=== PATIENT | male | born 1930 | race Caucasian/White ===

== ENCOUNTER 2016-06-23 16:49 | Emergency (ER) | payer OTHER ==
[2016-06-23 17:20] VITALS: TEMP 97.7; BMI 30.9
--- NOTE | 2016-06-23 18:29 | PDOC ---
[id number] is a 86 year old male, with a significant past medical history of epilepsy, diabetes, hyperlipidemia, hypertension, and triple bypass, who presents to the emergency department with family for a couple days of swelling and pain to his left hand. He reports pain with movement of the left hand but reports pain to the touch. He denies any trauma to the hand, and reports having some mild wrist pain at baseline, however, noticed an increase in swelling to the entire hand. He denies chest pain, shortness of breath, headache and dizziness. He denies fever, chills, nausea, vomit, diarrhea and constipation. He denies dysuria, frequency, urgency and hematuria. Allergies: NKDA Past surgical history: triple bypass and cholecystectomy Social history: denies toxic habits PCP - Dr. 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 <Tea Joyner - Last Filed: 06/23/16 20:26> <Ad Cifuentes - Last Filed: 06/24/16 07:59> - General Chief Complaint: Edema Stated Complaint: left hand swelling Time Seen by Provider: 06/23/16 17:13 Past History <Tea Joyner - Last Filed: 06/23/16 20:26> - Past Medical History Cardiac Disorders: Yes Diabetes: Yes HTN: Yes Hypercholesterolemia: Yes Seizures: Yes - Surgical History Cardiac Surgery: Yes (bipass) Cholecystectomy: Yes - Psycho/Social/Smoking Cessation Hx Anxiety: No Suicidal Ideation: No Smoking History: Former smoker Have you smoked in the past 12 months: No If you are a former smoker, when did you quit?: 2006 Information on smoking cessation initiated: No Hx Alcohol Use: No Drug/Substance Use Hx: No Substance Use Type: None Hx Substance Use Treatment: No <Ad Cifuentes - Last Filed: 06/24/16 07:59> - Past Medical History Allergies/Adverse Reactions: Allergies Allergy/AdvReac Type Severity Reaction Status Date / Time No Known Allergies Allergy Verified 06/23/16 16:50 Home Medications: Ambulatory Orders Amlodipine Besylate 5 mg PO DAILY 06/23/16 Apixaban [Eliquis] 10 mg PO DAILY 06/23/16 Cephalexin Monohydrate [Keflex -] 500 mg PO Q6H #28 capsule 06/23/16 Cyanocobalamin [Vitamin B12 -] 1,000 mcg PO DAILY 06/23/16 Donepezil HCl [Aricept] 10 mg PO DAILY 06/23/16 Hydrochlorothiazide [Hctz -] 25 mg PO DAILY 06/23/16 Levetiracetam [Keppra -] 1,000 mg PO BID 06/23/16 Magnesium Oxide [Magnesium] 500 mg PO DAILY 06/23/16 Metformin HCl [Glucophage] 1,500 mg PO DAILY 06/23/16 Metoprolol Tartrate 100 mg PO BID 06/23/16 Phenytoin Na Extended [Dilantin -] 400 mg PO DAILY 06/23/16 Ramipril 5 mg PO DAILY 06/23/16 Sertraline HCl [Zoloft] 50 mg PO DAILY 06/23/16 Simvastatin 40 mg PO DAILY 06/23/16 Sitagliptin Phosphate [Januvia] 25 mg PO DAILY 06/23/16 Review of Systems - Review of Systems Able to Perform ROS?: Yes Comments:: 06/23/16 18:31 CONSTITUTIONAL: Absent: fever, chills, diaphoresis, generalized weakness, malaise, loss of appetite HEENT: Absent: rhinorrhea, nasal congestion, throat pain, throat swelling, difficulty swallowing, mouth swelling, ear pain, eye pain, visual Changes CARDIOVASCULAR: Absent: chest pain, syncope, palpitations, irregular heart rate, lightheadedness , peripheral edema RESPIRATORY: Absent: cough, shortness of breath, dyspnea with exertion, orthopnea, wheezing, stridor, hemoptysis GASTROINTESTINAL: Absent: abdominal pain, abdominal distension, nausea, vomiting, diarrhea, constipation, melena, hematochezia GENITOURINARY: Absent: dysuria, frequency, urgency, hesitancy, hematuria, flank pain, genital pain MUSCULOSKELETAL: (+) left hand swelling and tenderness Absent: myalgia, SKIN: Absent: rash, itching, pallor HEMATOLOGIC/IMMUNOLOGIC: Absent: easy bleeding, easy bruising, lymphadenopathy, frequent infections ENDOCRINE: Absent: unexplained weight gain, unexplained weight loss, heat intolerance, cold intolerance NEUROLOGIC: Absent: headache, focal weakness or paresthesias, dizziness, unsteady gait, seizure, mental status changes, bladder or bowel incontinence PSYCHIATRIC: Absent: anxiety, depression, suicidal or homicidal ideation, hallucinations. <Tea Joyner - Last Filed: 06/23/16 20:26> *Physical Exam - Vital Signs Last Vital Signs Temp Pulse Resp BP Pulse Ox 97.7 F 112 H 20 136/83 96 06/23/16 16:50 06/23/16 16:50 06/23/16 16:50 06/23/16 16:50 06/23/16 16:50 - Physical Exam Comments: 06/23/16 18:32 GENERAL: Well developed, well nourished. Awake and alert. No acute distress. HEENT: Normocephalic, atraumatic. PERRLA, EOMI. No conjunctival pallor. Sclera are non- icteric. Moist mucous membranes. Oropharynx is clear. NECK: Supple. Full ROM. No JVD. Carotid pulses 2+ and symmetric, without bruits. No thyromegaly. No lymphadenopathy. CARDIOVASCULAR: Regular rate and rhythm. No murmurs, rubs, or gallops. Distal pulses are 2+ and symmetric. PULMONARY: No evidence of respiratory distress. Lungs clear to auscultation bilaterally. No wheezing, rales or rhonchi. ABDOMINAL: Soft. Non-tender. Non-distended. No rebound or guarding. No organomegaly. Normoactive bowel sounds. MUSCULOSKELETAL Normal range of motion at all joints. No bony deformities. No CVA tenderness. EXTREMITIES: (+) left hand is edematous, non-erythematous, and minimally tender to palpation. Right hand is normal. No cyanosis. No clubbing. No calf tenderness. SKIN: Warm and dry. Normal capillary refill. No rashes. No jaundice. NEUROLOGICAL: Alert, awake, appropriate. Cranial nerves 2-12 intact. Normoreflexic in the upper and lower extremities. Normal speech. Toes are down-going bilaterally. Gait is normal without ataxia. PSYCHIATRIC: Cooperative. Good eye contact. Appropriate mood and affect. <Tea Joyner - Last Filed: 06/23/16 20:26> - Vital Signs Last Vital Signs Temp Pulse Resp BP Pulse Ox 97.7 F 112 H 20 136/83 96 06/23/16 16:50 06/23/16 16:50 06/23/16 16:50 06/23/16 16:50 06/23/16 16:50 <Ad Cifuentes - Last Filed: 06/24/16 07:59> ED Treatment Course - LABORATORY CBC & Chemistry Diagram: 06/23/16 19:31 06/23/16 19:31 - RADIOLOGY Radiograph Interpretation: 06/23/16 18:34 Left hand xray was read by Dr. Parks Impression: left hand and wrist appears without fracture or bony deformities. There is a moderate amount of soft tissue swelling on xray. 06/23/16 20:26 Left upper extremity Doppler was read by Dr. Meneses at 1935 Impression: No evidence of DVT <Tea Joyner - Last Filed: 06/23/16 20:26> - LABORATORY CBC & Chemistry Diagram: 06/23/16 19:31 06/23/16 19:31 - RADIOLOGY Radiology Studies Ordered: Category Date Time Status WRIST W/HAND-LEFT* [RAD] Stat Radiology 06/23/16 17:41 Taken DUPLEX VASCUL US-1 ARM [US] Stat Ultrasound 06/23/16 18:22 Ordered <Ad Cifuentes - Last Filed: 06/24/16 07:59> Medical Decision Making - Medical Decision Making 06/23/16 18:35 xrays have been reviewed and negative for any acute findings. I will obtain US doppler of Left upper extremity to r/o blood clot due to the patient's history of CABG with surgical involvement of the distal left upper extremity. <Tea Joyner - Last Filed: 06/23/16 20:26> - Medical Decision Making 06/24/16 07:58 A should with unexplained edema of the left hand. 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 No trauma. Possibility of DVT being investigated with Doppler studies. Other possibilities early cellulitis or gallop. Signed out to Dr. Gallagher pending ultrasound evaluation, blood work, and further treatment 7 PM. <Ad Cifuentes - Last Filed: 06/24/16 07:59> *DC/Admit/Observation/Transfer - Attestations Scribe Attestion: 06/23/16 18:34 Documentation prepared by Tea Joyner, acting as director medical writing for Ad Clancy MD <Tea Joyner - Last Filed: 06/23/16 20:26> <Ad Cifuentes - Last Filed: 06/24/16 07:59> Diagnosis at time of Disposition: Swelling of left hand - Discharge Dispostion Disposition: HOME Condition at time of disposition: Stable - Prescriptions Prescriptions: Cephalexin Monohydrate [Keflex -] 500 mg PO Q6H #28 capsule - Referrals Referrals: Ronny Cardona MD [Staff Physician] - 1 week - Patient Instructions Printed Discharge Instructions: DI for Cellulitis -- Adult Additional Instructions: elevate left hand as much as possible keflex 500mg 4 X day for 1 week drink plenty of water followup with Dr Tariq in 2 days as scheduled followup with Dr Cardona within 1 week return to ER if swelling/redness/pain worsens or you develop fever
--- NOTE | 2016-06-23 19:14 | PDOC ---
[id number] 136/83 96 06/23/16 16:50 06/23/16 16:50 06/23/16 16:50 06/23/16 16:50 06/23/16 16:50 ED Treatment Course - LABORATORY CBC & Chemistry Diagram: 06/23/16 19:31 06/23/16 19:31 Progress Note - Progress Note Progress Note: Care of this patient received from Dr. Parks. Patient presents with 2 day history of progressive left hand edema. Upper extremity Doppler ultrasound negative for DVT CBC/chemistry profile essentially normal with normal white blood cell count; glucose is minimally elevated at 126. There is evidence of mild prerenal azotemia with a BUN of 26 and a creatinine of 0.8. Uric acid is normal at 4.7. Remainder of the chemistry profile is essentially normal except for minimal elevation of alkaline phosphatase(111) Results discussed with patient, his , his daughter and his son-in-law. Because the patient is a diabetic, empirical treatment for early cellulitis will be started: Keflex 500 mg with first dose given here. Course of 7 days prescribed for the patient. Patient should follow-up with his general medical doctor, Dr. Cardona within 1 week. Appointment with patient's food and beverage manager (Dr. Holder) is already scheduled on June 25. Patient should return to the ER if there is any worsening of the erythema/edema/ pain of the hand or if patient develops fever *DC/Admit/Observation/Transfer Diagnosis at time of Disposition: Swelling of left hand - Discharge Dispostion Disposition: HOME Condition at time of disposition: Stable - Prescriptions Prescriptions: Cephalexin Monohydrate [Keflex -] 500 mg PO Q6H #28 capsule - Referrals Referrals: Ronny Cardona MD [Staff Physician] - 1 week - Patient Instructions Printed Discharge Instructions: DI for Cellulitis -- Adult Additional Instructions: elevate left hand as much as possible keflex 500mg 4 X day for 1 week drink plenty of water followup with Dr Tariq in 2 days as scheduled followup with Dr Cardona within 1 week return to ER if swelling/redness/pain worsens or you develop fever
[2016-06-23 20:05] LABS: BASOPHIL 0.8 % (0-2.0); EOSINOPHIL 1.3 % (0-4.5); MCH 32.7 pg (25.7-33.7); MCHC 33.9 g/dl (32.0-35.9); MEAN CELL VOLUME 96.5 fl (80-96); MEAN PLT VOLUME 7.8 fl (7.5-11.1); NEUTROPHILS 63.4 % (42.8-82.8); PLATELET COUNT 224 K/MM3 (134-434); RDW 12.9 % (11.9-15.9); WHITE BLOOD COUNT 9.1 K/mm3 (4.0-10.0)
[2016-06-23 20:13] LABS: ALK PHOS 111 U/L (32-92); ANION GAP 11 (8-16); BILIRUBIN,TOTAL 0.3 mg/dl (0.2-1.0); CALCIUM 9.3 mg/dl (8.4-10.2); CO2 29 mmol/L (22-28); CREATININE 0.8 mg/dl (0.6-1.3); GLUCOSE,RANDOM 126 mg/dl (74-106); SGOT/AST 39 U/L (10-42); SGPT/ALT 32 U/L (10-40); TOT PROT 7.6 g/dl (6.4-8.3)
[2016-06-23] MEDS ORDERED: CEPHALEXIN MONOHYDRATE 500 MG CAPSULE (UD) PO ONE (20:27)
[2016-06-23] MEDS ORDERED: CEPHALEXIN MONOHYDRATE 500 MG CAPSULE (UD) ONE (20:37)
[2016-06-23 20:59] VITALS: BP 111/62; PULSE 75
[2016-06-23 21:02] LABS: URIC ACID 4.7 mg/dl (2.6-7.2)
== END 2016-06-23 21:02 | disposition home or self-care (01) ==
LOC: FER 16:49
DX: M79.89 Other specified soft tissue disorders (principal); G40.909 Epilepsy, unspecified, not intractable, without status epilepticus; E11.9 Type 2 diabetes mellitus without complications; I10 Essential (primary) hypertension; Z95.1 Presence of aortocoronary bypass graft; Z87.891 Personal history of nicotine dependence
CPT/HCPCS: 36415; 73110-TC-LT; 73130-TC-LT; 80053; 84550; 85025; 93971; 99284-25

== ENCOUNTER 2017-03-06 10:52 | Inpatient (IN) | payer OTHER ==
[2017-03-06] MEDS ORDERED: SODIUM CHLORIDE 1,000 ML IV STA ×2 (11:15→12:23)
[2017-03-06] MEDS ORDERED: SODIUM CHLORIDE 0.9% 1000 ML INFUS.BAG IV PRN (11:15)
[2017-03-06] MEDS ORDERED: ACETAMINOPHEN 1000 MG/100 ML VIAL (NON FORMULARY) IVPB ONE ×2 (11:16→11:46)
--- NOTE | 2017-03-06 11:26 | PDOC ---
*Physical Exam - Vital Signs Last Vital Signs Temp Pulse Resp BP Pulse Ox 101.5 F H 70 18 113/55 100 03/06/17 11:14 03/06/17 11:02 03/06/17 11:02 03/06/17 11:02 03/06/17 11:02 - Physical Exam Comments: 03/06/17 11:23 fever on rectal exam alert, cooperative, following commands head atraumatic L shoulder abrasion and ? deformity but FROM bruising to L hip/Lower abdomen but no tenderness no cvat neuro nonfocal ED Treatment Course - RADIOLOGY Radiology Studies Ordered: Category Date Time Status CHEST X-RAY PORTABLE* [RAD] Stat Radiology 03/06/17 11:15 Ordered Medical Decision Making - Critical Care Time Total Critical Care Time (minutes): 40 Critical Care Statement: The care of this patient involved high complexity decision making to prevent further life threatening deterioration of the patient 's condition and/or to evaluate & treat vital organ system(s) failure or risk of failure. - Medical Decision Making 03/06/17 11:24 Patient seen and evaluated with the nurse practitioner. I agree with the overall evaluation, assessment, and management with the following summary of visit: 86-year-old male presents with weakness and falls in the setting of fever. No localizing symptoms on history, Febrile, remaining vitals are within normal limits Exam as noted Sepsis protocol initiated Regarding falls and trauma workup: Will perform CT head, left shoulder, chest x- ray, pelvis x-ray. Antibiotics as needed Admission
[2017-03-06] MEDS ORDERED: DIPHTH,PERTUSS(ACELL),TET 0.5 ML DISP.SYRIN IM ONE (11:37)
[2017-03-06 11:43] LABS: BASO % 0.6 % (0-2.0); EOS % 0.1 % (0-4.5); MCH 32.5 pg (25.7-33.7); MCHC 32.9 g/dl (32.0-35.9); MEAN CELL VOLUME 98.7 fl (80-96); MEAN PLT VOLUME 7.1 fl (7.5-11.1); NEUT # 4.4 # (42.8-82.8); NEUT % 68.5 % (42.8-82.8); PLATELET COUNT 148 K/MM3 (134-434); RDW 14.3 % (11.9-15.9); WHITE BLOOD COUNT 6.4 K/mm3 (4.0-10.0)
[2017-03-06 11:45] LABS: VENOUS PH 7.35 (7.32-7.42)
[2017-03-06 11:46] LABS: VENOUS BLOOD GAS HCO3 27.8 meq/L (19-25)
[2017-03-06] MEDS ORDERED: ACETAMINOPHEN INJECTION 100 ML IVPB ONE (11:47)
[2017-03-06 11:49] LABS: URINE APPEARANCE CLEAR; URINE BILIRUBIN NEGATIVE (NEGATIVE); URINE BLOOD 1+ (NEGATIVE); URINE COLOR YELLOW; URINE GLUCOSE (UA) 3+ (NEGATIVE); URINE KETONE NEGATIVE (NEGATIVE); URINE LEUK ESTERASE NEGATIVE (NEGATIVE); URINE NITRITE NEGATIVE (NEGATIVE); URINE PROTEIN NEGATIVE (NEGATIVE); URINE UROBILINOGEN NEGATIVE mg/dL (0.2-1.0)
[2017-03-06 11:53] LABS: INR 1.39 (0.82-1.09); PROTHROMBIN TIME (PATIENT) 15.7 SEC (9.98-11.88)
[2017-03-06 11:55] LABS: ACTIVATED PTT 33.2 SECONDS (26.9-34.4)
[2017-03-06 12:03] LABS: URINE RBC 2 /hpf (0-3); URINE WBC 1 /hpf (3-5)
[2017-03-06 12:05] LABS: ALBUMIN 3.3 g/dl (3.4-5.0); ANION GAP 10 (8-16); BILIRUBIN,TOTAL 0.3 mg/dL (0.2-1.0); CALCIUM 7.8 mg/dL (8.5-10.1); CO2 27 mmol/L (21-32); CREATININE 1.2 mg/dL (0.7-1.3); GLUCOSE,RANDOM 236 mg/dL (74-106); SGOT/AST 33 U/L (15-37); SGPT/ALT 28 U/L (12-78); TOT PROT 6.8 g/dl (6.4-8.2)
[2017-03-06 12:07] LABS: ALK PHOS 81 U/L (45-117); CPK 79 IU/L (39-308); TROPONIN I 0.02 ng/ml (0.00-0.05)
--- NOTE | 2017-03-06 13:21 | PDOC ---
History of Present Illness - General Chief Complaint: Weakness Stated Complaint: WEAKNESS Time Seen by Provider: 03/06/17 11:09 History Source: Patient, Other (son) Exam Limitations: No Limitations - History of Present Illness Initial Comments: 03/06/17 13:22 86-year-old male presents to the ED status post fall landing on his left knee and left shoulder this morning while going to the bathroom. Patient also fell twice this week without LOC but refused medical care once EMS had arrived. Son states father appears weak and son states he is not ambulating well, along with decreased appetite for the past 2 days. Patient denies recent travel, recent illness, recent change in medications. Patient has no complaints presently. As per son , just had a pacemaker placed and returned home a few days ago also concerning for infection. Timing/Duration: getting worse Severity: moderate Associated Symptoms: reports: fever/chills, weakness Past History - Travel Traveled outside of the country in the last 30 days: No - Past Medical History Allergies/Adverse Reactions: Allergies Allergy/AdvReac Type Severity Reaction Status Date / Time No Known Allergies Allergy Verified 03/06/17 11:04 Home Medications: Ambulatory Orders Apixaban [Eliquis] 5 mg PO BID 06/23/16 Cyanocobalamin [Vitamin B12 -] 1,000 mcg PO DAILY 06/23/16 Donepezil HCl [Aricept] 10 mg PO DAILY 06/23/16 Levetiracetam [Keppra -] 1,000 mg PO BID 06/23/16 Metformin HCl [Glucophage] 500 mg PO TID 06/23/16 Metoprolol Tartrate 50 mg PO BID 06/23/16 Phenytoin Na Extended [Dilantin -] 200 mg PO BID 06/23/16 Ramipril 10 mg PO DAILY 06/23/16 Sertraline HCl [Zoloft] 50 mg PO DAILY 06/23/16 Simvastatin 40 mg PO DAILY 06/23/16 Amiodarone HCl [Cordarone -] 200 mg PO BID 03/06/17 Dapagliflozin Propanediol [Farxiga] 10 mg PO DAILY 03/06/17 Furosemide [Lasix] 20 mg PO DAILY 03/06/17 Spironolactone 25 mg PO DAILY 03/06/17 Cardiac Disorders: Yes COPD: No Diabetes: Yes HTN: Yes Hypercholesterolemia: Yes Seizures: Yes - Surgical History Cardiac Surgery: Yes (bipass) Cholecystectomy: Yes - Suicide/Smoking/Psychosocial Hx Smoking History: Unknown if ever smoked Have you smoked in the past 12 months: No If you are a former smoker, when did you quit?: 2006 Information on smoking cessation initiated: No Hx Alcohol Use: No Drug/Substance Use Hx: No Substance Use Type: None Hx Substance Use Treatment: No Patient Lives Alone: No Lives with/in: spouse/SO Review of Systems - Review of Systems Able to Perform ROS?: Yes Constitutional: Yes: Loss of Appetite, Weakness. No: Unintentional Wgt. Loss Respiratory: No: Symptoms reported Cardiac (ROS): No: Symptoms Reported ABD/GI: Yes: Poor Appetite Musculoskeletal: No: Symptoms Reported Integumentary: No: Symptoms Reported Neurological: Yes: Weakness Hematologic/Lymphatic: No: Symptoms Reported *Physical Exam - Vital Signs Last Vital Signs Temp Pulse Resp BP Pulse Ox 101.5 F H 84 20 112/74 94 L 03/06/17 11:14 03/06/17 12:03 03/06/17 12:03 03/06/17 12:03 03/06/17 12:03 - Physical Exam General Appearance: Yes: Nourished, Appropriately Dressed. No: Apparent Distress HEENT: positive: EOMI, MONIKA, TMs Normal, Pharynx Normal (dry) Neck: positive: Supple. negative: Tender, Decreased range of motion Respiratory/Chest: positive: Rhonchi (rll on inspiration). negative: Chest Tender, Respiratory Distress, Accessory Muscle Use, Crackles, Wheezing Cardiovascular: positive: Regular Rhythm, Regular Rate. negative: Murmur Vascular Pulses: Dorsalis-Pedis (R): 2+, Doralis-Pedis (L): 2+ Gastrointestinal/Abdominal: positive: Soft, Tenderness, Other (noted purplish blue ecchymotic areas to abdomen) Extremity: positive: Normal Capillary Refill, Normal Range of Motion. negative : Normal Inspection (noted abrasion to left patella and superficial sjin tear to posteriot left shoulder. No deformity or crepitus noted), Tender, Pedal Edema Neurologic: positive: Normal Mood/Affect, Motor Strength 5/5 Heart Score/ECG Review - ECG Intrepretation Rhythm: Regular Rhythm (rate 80, NSR. no st depression or elevation noted) ED Treatment Course - LABORATORY CBC & Chemistry Diagram: 03/06/17 11:05 03/06/17 11:05 - ADDITIONAL ORDERS Additional order review: Laboratory Results 03/06/17 03/06/17 03/06/17 11:05 11:05 11:05 PT with INR INR PTT (Actin FS) VBG pH POC VBG pCO2 POC VBG pO2 Mixed VBG HCO3 Sodium 134 L Potassium 4.2 Chloride 97 L Carbon Dioxide 27 Anion Gap 10 BUN 23 H Creatinine 1.2 D Creat Clearance w eGFR 57.41 Random Glucose 236 H D Lactic Acid 2.5 H* Calcium 7.8 L Total Bilirubin 0.3 AST 33 D ALT 28 Alkaline Phosphatase 81 Creatine Kinase 79 Troponin I 0.02 D Total Protein 6.8 Albumin 3.3 L Urine Color Urine Appearance Urine pH Ur Specific Cavour Urine Protein Urine Glucose (UA) Urine Ketones Urine Blood Urine Nitrite Urine Bilirubin Urine Urobilinogen Urine WBC (Auto) Urine RBC (Auto) Blood Type O POSITIVE Antibody Screen Negative 03/06/17 03/06/17 03/06/17 11:05 11:05 11:05 PT with INR 15.70 H INR 1.39 H D PTT (Actin FS) 33.2 VBG pH 7.35 POC VBG pCO2 51.3 POC VBG pO2 34.1 Mixed VBG HCO3 27.8 H Sodium Potassium Chloride Carbon Dioxide Anion Gap BUN Creatinine Creat Clearance w eGFR Random Glucose Lactic Acid Calcium Total Bilirubin AST ALT Alkaline Phosphatase Creatine Kinase Troponin I Total Protein Albumin Urine Color Yellow Urine Appearance Clear Urine pH 5.0 Ur Specific Cavour 1.017 Urine Protein Negative Urine Glucose (UA) 3+ H Urine Ketones Negative Urine Blood 1+ H Urine Nitrite Negative Urine Bilirubin Negative Urine Urobilinogen Negative Urine WBC (Auto) 1 Urine RBC (Auto) 2 Blood Type Antibody Screen 03/06/17 11:30 Influenza Types A,B Antigen (PAVEL) - Final Nasopharyngeal Swab - Final 03/06/17 11:05 RBC 4.41 MCV 98.7 H MCHC 32.9 RDW 14.3 MPV 7.1 L Neutrophils % 68.5 D Lymphocytes % 15.1 D Monocytes % 15.7 H D Eosinophils % 0.1 D Basophils % 0.6 - Medications Given in the ED: ED Medications Discontinued Medications Generic Name Dose Route Start Last Admin Trade Name Freq PRN Reason Stop Dose Admin Acetaminophen 1,000 mg 03/06/17 11:16 03/06/17 11:54 Ofirmev Injection - IVPB 03/06/17 11:17 1,000 mg ONCE ONE Administration Acetaminophen 1,000 mg 03/06/17 11:46 03/06/17 12:16 Ofirmev Injection - IVPB 03/06/17 11:47 Not Given ONCE ONE Diphtheria/Tetanus/Acell Pertussis 0.5 ml 03/06/17 11:37 03/06/17 11:55 Boostrix - IM 03/06/17 11:38 0.5 ml .ONCE ONE Administration Sodium Chloride 1,000 mls @ 1,000 mls/hr 03/06/17 11:15 03/06/17 11:54 Normal Saline - IV 03/06/17 12:14 1,000 mls/hr ASDIR STA Administration Medical Decision Making - Medical Decision Making 03/06/17 12:15 Patient in for evaluation of worsening weakness, poor by mouth intake and recurrent falls. Patient on exam has ecchymosis to the left knee, posterior left shoulder and had a rectal temp of 101.4. Patient with rhonchi to the right lower base on inspiration . Patient ordered for septic workup including IV Tylenol, head CT, shoulder x-ray and pelvic x-ray. 03/06/17 13:16 CT head unchanged from prior. Limited study due to metallic plate in right frontal region. 03/06/17 13:16 Laboratory Tests 03/06/17 03/06/17 03/06/17 11:05 11:05 11:05 WBC 6.4 Hgb 14.3 Hct 43.6 Plt Count 148 D MPV 7.1 L Monocytes % 15.7 H D PT with INR 15.70 H INR 1.39 H D VBG pH POC VBG pCO2 POC VBG pO2 Mixed VBG HCO3 Sodium Potassium Chloride Carbon Dioxide Anion Gap BUN Random Glucose Lactic Acid Calcium Troponin I Urine Glucose (UA) 3+ H Urine Blood 1+ H Urine Nitrite Negative Ur Leukocyte Esterase Pending Urine WBC (Auto) 1 Urine RBC (Auto) 2 03/06/17 03/06/17 03/06/17 11:05 11:05 11:05 WBC Hgb Hct Plt Count MPV Monocytes % PT with INR INR VBG pH 7.35 POC VBG pCO2 51.3 POC VBG pO2 34.1 Mixed VBG HCO3 27.8 H Sodium 134 L Potassium 4.2 Chloride 97 L Carbon Dioxide 27 Anion Gap 10 BUN 23 H Random Glucose 236 H D Lactic Acid 2.5 H* Calcium 7.8 L Troponin I 0.02 D Urine Glucose (UA) Urine Blood Urine Nitrite Ur Leukocyte Esterase Urine WBC (Auto) Urine RBC (Auto) 2nd bag of IVF ordered Influenza swab negative. Pelvic CT negative for acute pathology. Shoulder x- ray negative for acute findings. Call placed to Dr. Cardona to discuss admission. 03/06/17 13:[address] Cardona and states admitted to [facility]. he is also recommending that patient have a noncontrast CT and be treated for community acquired pneumonia. *DC/Admit/Observation/Transfer Diagnosis at time of Disposition: Sepsis Qualifiers: Sepsis type: sepsis due to unspecified organism Qualified Code(s): A41.9 - Sepsis, unspecified organism Pneumonia Qualifiers: Pneumonia type: due to unspecified organism Laterality: right Lung location: lower lobe of lung Qualified Code(s): J18.1 - Lobar pneumonia, unspecified organism - Discharge Dispostion Admit: Yes - Referrals - Patient Instructions - Post Discharge Activity
[2017-03-06] MEDS ORDERED: CEFTRIAXONE 1 GM in DEXTROSE 5%-WATER - 50 ML IVPB ONE (13:54)
[2017-03-06] MEDS ORDERED: AZITHROMYCIN IVPB 500 MG in DEXTROSE 5%-WATER - 250 ML IVPB ONE (13:55)
[2017-03-06] MEDS ORDERED: AZITHROMYCIN IVPB 250 ML IVPB ONE (14:32)
[2017-03-06] MEDS ORDERED: CEFTRIAXONE 1 GM/50 ML BAG ONE (14:32)
[2017-03-06 14:40] LABS: URINE LEUK ESTERASE Negative (NEGATIVE)
--- NOTE | 2017-03-06 16:57 | EKG ---
Test Reason : Blood Pressure : / mmHG Vent. Rate : 080 BPM Atrial Rate : 079 BPM P-R Int : 000 ms QRS Dur : 094 ms QT Int : 384 ms P-R-T Axes : 000 032 050 degrees QTc Int : 442 ms NORMAL SINUS RHYTHM NONSPECIFIC T WAVE ABNORMALITY ABNORMAL ECG WHEN COMPARED WITH ECG OF 24-MAY-2014 09:06, NONSPECIFIC T WAVE ABNORMALITY, IMPROVED IN INFERIOR LEADS NONSPECIFIC T WAVE ABNORMALITY, WORSE IN ANTERIOR LEADS Confirmed by INDERJIT CARRERO MD ([id number]) on 03/06/2017 4:57:34 PM Referred By: Confirmed By:INDERJIT CARRERO MD
[2017-03-06] MEDS: INSULIN SLIDING SCALE (NOVOLOG) 1 VIAL SQ SCH ×2 (18:35→22:07)
[2017-03-06 19:01] VITALS: BMI 28.2
[2017-03-06] MEDS ORDERED: PNEUMOC 13-VAL CONJ-DIP CRM/PF 0.5 ML DISP.SYRIN IM ONE (19:53)
[2017-03-06] MEDS ORDERED: INSULIN (NOVOLOG) ASPART 100 UNITS/ML 10ML VIAL ONE (21:03)
[2017-03-06] MEDS ORDERED: PT OWN MED DRAWER 7, Y5N ONE (21:04)
[2017-03-06] MEDS: levETIRAcetam 500 MG TABLET (FP) PO SCH (21:19)
[2017-03-06] MEDS: METOPROLOL TARTRATE 50 MG TABLET (FP) PO SCH (21:21)
[2017-03-06] MEDS: APIXABAN 5 MG TABLET PO SCH (21:23)
[2017-03-06] MEDS: POLYETHYLENE GLYCOL 3350 119 GM BTL PO SCH (22:05)
[2017-03-06] MEDS: PHENYTOIN NA EXTENDED 100 MG CAPSULE (FP) PO SCH (22:05)
[2017-03-07] MEDS ORDERED: ALBUTEROL SO4 2.5/IPRATROPIUM 0.5 INH SOL 3 ML VIAL.NEB. NEB ONE (05:22)
[2017-03-07] MEDS: ALBUTEROL SO4 2.5/IPRATROPIUM 0.5 INH SOL 3 ML VIAL.NEB. NEB SCH ×4 (05:35→23:02)
[2017-03-07] MEDS ORDERED: BUDESONIDE 0.25 MG/2ML INH SUSP VIAL NEB ONE (05:44)
[2017-03-07] MEDS ORDERED: FUROSEMIDE 40 MG TABLET (FP) PO ONE (05:47)
[2017-03-07] MEDS ORDERED: methylPREDNISolone NA SUCC 125 MG/2 ML VIAL IVPB ONE (05:51)
[2017-03-07] MEDS ORDERED: FUROSEMIDE 40 MG/4 ML INJECTABLE VIAL IVPUSH ONE (05:56)
--- NOTE | 2017-03-07 06:06 | HOSP ---
Subjective - Review of Symptoms Events since last encounter: Agree with Subjective: Saw Pt. at bedside Vital Signs Period Temp Pulse Resp BP Sys/Gutiérrez Pulse Ox Last 24 Hr 97.6 F-101.5 F 70-95 14-20 105-122/46-74 94-100 CARD: RRR S1, S2 RESP: Mild Expiratory Wheezing A/P.) Acute Hypoxic Resp. Failure ABG/CXR/EKG/TROP - Rest as per Resident note - PCP notified - NRB- Nebs,lasix, Solu-Medrol given - Pulm. Consult - CT reviewed <Kay Frye - Last Filed: 03/07/17 06:55> Physical Examination Vital Signs: Vital Signs Temperature 99.2 F 03/07/17 01:50 Pulse Rate 76 03/07/17 01:50 Respiratory Rate 20 03/07/17 01:50 Blood Pressure 119/57 03/07/17 01:50 O2 Sat by Pulse Oximetry (%) 95 03/06/17 21:00 Labs: CBC, BMP 03/06/17 11:05 03/06/17 11:05 <Myron Vera - Last Filed: 03/07/17 06:29> Vital Signs: Vital Signs Temperature 97.6 F 03/07/17 06:28 Pulse Rate 95 H 03/07/17 06:28 Respiratory Rate 20 03/07/17 06:28 Blood Pressure 122/65 03/07/17 06:28 O2 Sat by Pulse Oximetry (%) 95 03/06/17 21:00 Labs: CBC, BMP 03/06/17 11:05 03/06/17 11:05 <Kay Frye - Last Filed: 03/07/17 06:55> Hospitalist Encounter Assessment: I was paged by the nurse to evaluate patient mentioned . Patient labored breathing with expiratory wheezing. Vitals : BP 149/91, P99, O2 sat 83 on 2 L 89% on 6 L . PE, Head : NC At Neck Supple Chest : inspiratory and expiratory wheezing , no crackles Heart RRR, NO MRG Legs No edmea AP : I spoke with and he agreed to give the patient the following : Lasix 40 mg IVpush Solomedrol 60 mg IV Duoneb 1 amb and consult Pulmonary senior vice president and chief information officer . vent mask 50 % ABG state CXR state portable Myron Vera MD [id number] <Myron Vera - Last Filed: 03/07/17 06:29> Visit type - Emergency Visit Emergency Visit: Yes ED Registration Date: 03/06/17 Care time: The patient presented to the Emergency Department on the above date and was hospitalized for further evaluation of their emergent condition. - New Patient This patient is new to me today: Yes Date on this admission: 03/07/17 - Critical Care Critical Care patient: No <Myron Vera - Last Filed: 03/07/17 06:29>
[2017-03-07] MEDS: INSULIN SLIDING SCALE (NOVOLOG) 1 VIAL SQ SCH ×4 (06:12→21:32)
[2017-03-07 07:36] LABS: BASO % 0.3 % (0-2.0); EOS % 0.1 % (0-4.5); LYMPH # 1.8 (8-40); MCH 32.7 pg (25.7-33.7); MEAN CELL VOLUME 99.3 fl (80-96); MEAN PLT VOLUME 7.3 fl (7.5-11.1); MONO # 0.7 # (3.8-10.2); NEUT # 4.5 # (42.8-82.8); NEUT % 63.8 % (42.8-82.8); PLATELET COUNT 141 K/MM3 (134-434); WHITE BLOOD COUNT 7.1 K/mm3 (4.0-10.0)
[2017-03-07] MEDS: INSULIN DETEMIR 100 UNITS/ML MDV SQ SCH (08:00)
[2017-03-07 08:07] LABS: ALBUMIN 3.3 g/dl (3.4-5.0); ANION GAP 10 (8-16); BILIRUBIN,TOTAL 0.3 mg/dL (0.2-1.0); CALCIUM 7.5 mg/dL (8.5-10.1); CHOLESTEROL 141 mg/dL (50-200); CO2 27 mmol/L (21-32); CREATININE 0.9 mg/dL (0.7-1.3); GLUCOSE,RANDOM 176 mg/dL (74-106); MAGNESIUM 1.8 mg/dL (1.8-2.4); PHOSPHOROUS 3.6 mg/dL (2.5-4.9); SGOT/AST 39 U/L (15-37); SGPT/ALT 27 U/L (12-78); TOT PROT 6.8 g/dl (6.4-8.2)
[2017-03-07 08:08] LABS: ALK PHOS 82 U/L (45-117)
--- NOTE | 2017-03-07 08:59 | HP ---
Admitting History and Physical - Admission Chief Complaint: 86 y.o M had several falls at home, generalized weakness, cough and chest congestion. Was BI to ER and was found to have elevated lactate level, fever and rales in the chest. The patient was admitted for further management. 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 CABG x3, Hx of PAF after CABG, ASHD, HYperlipidemia Hx of ST vs atrial tachycardia. A.Fib DM type 2 previously well controlled HTN COPD. MOH Sx-BCC on the nose. Cholecystectomy. Varicose veins. Dysphagia.MBS-slow transit. Obstructive sleep apnea-refused CPAP. 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 No: Addictions, Anxiety, Bipolar, Panic, Psychosis, Schizophrenia, Other Musculoskeletal: Yes: Osteoarthritis Dermatology: Yes: Basal Cell, Other (Tinea corporis.) - Past Surgical History Past Surgical History: Yes: CABG (X 3), Cholecystectomy - Smoking History Smoking history: Unknown if ever smoked Have you smoked in the past 12 months: No If you are a former smoker, when did you quit?: 2006 - Alcohol/Substance Use Hx Alcohol Use: No - Social History History of Recent Travel: No <Ronny Cardona - Last Filed: 03/07/17 09:21> Home Medications <Ronny Cardona - Last Filed: 03/07/17 09:21> <Manoj Juan - Last Filed: 03/07/17 14:50> - Allergies Allergies/Adverse Reactions: Allergies Allergy/AdvReac Type Severity Reaction Status Date / Time No Known Allergies Allergy Verified 03/06/17 11:04 - Home Medications Home Medications: Ambulatory Orders Apixaban [Eliquis] 5 mg PO BID 06/23/16 Cyanocobalamin [Vitamin B12 -] 1,000 mcg PO DAILY 06/23/16 Donepezil HCl [Aricept] 10 mg PO DAILY 06/23/16 Levetiracetam [Keppra -] 1,000 mg PO BID 06/23/16 Metformin HCl [Glucophage] 500 mg PO TID 06/23/16 Metoprolol Tartrate 50 mg PO BID 06/23/16 Phenytoin Na Extended [Dilantin -] 200 mg PO BID 06/23/16 Ramipril 10 mg PO DAILY 06/23/16 Sertraline HCl [Zoloft] 50 mg PO DAILY 06/23/16 Simvastatin 40 mg PO DAILY 06/23/16 Amiodarone HCl [Cordarone -] 200 mg PO BID 03/06/17 Dapagliflozin Propanediol [Farxiga] 10 mg PO DAILY 03/06/17 Furosemide [Lasix] 20 mg PO DAILY 03/06/17 Spironolactone 25 mg PO DAILY 03/06/17 Family Disease History - Family Disease History Family History: Unable to Obtain <Ronny Cardona - Last Filed: 03/07/17 09:21> Review of Systems Unable to obtain ROS, reason: Confused <Ronny Cardona - Last Filed: 03/07/17 09:21> Physical Examination Vital Signs: Vital Signs Temperature 97.6 F 03/07/17 06:28 Pulse Rate 95 H 03/07/17 06:28 Respiratory Rate 20 03/07/17 06:28 Blood Pressure 122/65 03/07/17 06:28 O2 Sat by Pulse Oximetry (%) 95 03/06/17 21:00 Constitutional: Yes: Anxious, Moderate Distress. No: Ashen, Cachectic, Thin Eyes: Yes: Conjunctiva Clear, EOM Intact HENT: Yes: Other (Deformity after skull fx -TBI. Large scaly lesion on the forehead-?BCC or SCC). No: Drooling Neck: No: Lymphadenopathy Cardiovascular: Yes: Pulse Irregular (C/w A.Fib), S1, S2. No: Regular Rate and Rhythm, JVD, Murmur Respiratory: Yes: Regular, Cough, On Venti-Mask (50%-93-94%), Rales (RLL), Rhonchi (B/L) Gastrointestinal: Yes: Normal Bowel Sounds, Soft ...Rectal Exam: Yes: Deferred Renal/: No: Anuria, Bladder Distention Breast(s): Yes: WNL Musculoskeletal: Yes: Muscle Weakness. No: Joint Swelling Extremities: No: Amputation, Calf Tenderness, Cold, Cyanosis Edema: No Peripheral Pulses WNL: No Integumentary: Yes: WNL Neurological: Yes: Alert. No: Oriented, Aphasia, Dysarthria ...Motor Strength: WNL Psychiatric: Yes: Alert. No: Oriented, Agitated, Suicidal Ideation Labs: CBC, BMP 03/07/17 06:00 Laboratory Results - last 24 hr 03/06/17 03/06/17 03/06/17 11:05 11:05 11:05 WBC 6.4 RBC 4.41 Hgb 14.3 Hct 43.6 MCV 98.7 H MCH 32.5 MCHC 32.9 RDW 14.3 Plt Count 148 D MPV 7.1 L Neutrophils % 68.5 D Lymphocytes % 15.1 D Monocytes % 15.7 H D Eosinophils % 0.1 D Basophils % 0.6 PT with INR 15.70 H INR 1.39 H D PTT (Actin FS) 33.2 VBG pH POC VBG pCO2 POC VBG pO2 Mixed VBG HCO3 Sodium Potassium Chloride Carbon Dioxide Anion Gap BUN Creatinine Creat Clearance w eGFR POC Glucometer Random Glucose Lactic Acid Calcium Phosphorus Magnesium Total Bilirubin AST ALT Alkaline Phosphatase Creatine Kinase Troponin I Total Protein Albumin Triglycerides Cholesterol Total LDL Cholesterol HDL Cholesterol Urine Color Yellow Urine Appearance Clear Urine pH 5.0 Ur Specific [place] 1.017 Urine Protein Negative Urine Glucose (UA) 3+ H Urine Ketones Negative Urine Blood 1+ H Urine Nitrite Negative Urine Bilirubin Negative Urine Urobilinogen Negative Ur Leukocyte Esterase Negative Urine WBC (Auto) 1 Urine RBC (Auto) 2 Blood Type Antibody Screen 03/06/17 03/06/17 03/06/17 11:05 11:05 11:05 WBC RBC Hgb Hct MCV MCH MCHC RDW Plt Count MPV Neutrophils % Lymphocytes % Monocytes % Eosinophils % Basophils % PT with INR INR PTT (Actin FS) VBG pH 7.35 POC VBG pCO2 51.3 POC VBG pO2 34.1 Mixed VBG HCO3 27.8 H Sodium 134 L Potassium 4.2 Chloride 97 L Carbon Dioxide 27 Anion Gap 10 BUN 23 H Creatinine 1.2 D Creat Clearance w eGFR 57.41 POC Glucometer Random Glucose 236 H D Lactic Acid 2.5 H* Calcium 7.8 L Phosphorus Magnesium Total Bilirubin 0.3 AST 33 D ALT 28 Alkaline Phosphatase 81 Creatine Kinase 79 Troponin I 0.02 D Total Protein 6.8 Albumin 3.3 L Triglycerides Cholesterol Total LDL Cholesterol HDL Cholesterol Urine Color Urine Appearance Urine pH Ur Specific [place] Urine Protein Urine Glucose (UA) Urine Ketones Urine Blood Urine Nitrite Urine Bilirubin Urine Urobilinogen Ur Leukocyte Esterase Urine WBC (Auto) Urine RBC (Auto) Blood Type Antibody Screen 03/06/17 03/06/17 03/06/17 11:05 15:16 17:35 WBC RBC Hgb Hct MCV MCH MCHC RDW Plt Count MPV Neutrophils % Lymphocytes % Monocytes % Eosinophils % Basophils % PT with INR INR PTT (Actin FS) VBG pH POC VBG pCO2 POC VBG pO2 Mixed VBG HCO3 Sodium Potassium Chloride Carbon Dioxide Anion Gap BUN Creatinine Creat Clearance w eGFR POC Glucometer 150 Random Glucose Lactic Acid 1.4 Calcium Phosphorus Magnesium Total Bilirubin AST ALT Alkaline Phosphatase Creatine Kinase Troponin I Total Protein Albumin Triglycerides Cholesterol Total LDL Cholesterol HDL Cholesterol Urine Color Urine Appearance Urine pH Ur Specific [place] Urine Protein Urine Glucose (UA) Urine Ketones Urine Blood Urine Nitrite Urine Bilirubin Urine Urobilinogen Ur Leukocyte Esterase Urine WBC (Auto) Urine RBC (Auto) Blood Type O POSITIVE Antibody Screen Negative 03/06/17 03/07/17 03/07/17 22:06 05:40 06:00 WBC 7.1 RBC 4.47 Hgb 14.6 Hct 44.4 MCV 99.3 H MCH 32.7 MCHC 33.0 RDW 14.0 Plt Count 141 MPV 7.3 L Neutrophils % 63.8 Lymphocytes % 25.5 D Monocytes % 10.3 H Eosinophils % 0.1 Basophils % 0.3 PT with INR INR PTT (Actin FS) VBG pH POC VBG pCO2 POC VBG pO2 Mixed VBG HCO3 Sodium Potassium Chloride Carbon Dioxide Anion Gap BUN Creatinine Creat Clearance w eGFR POC Glucometer 165 162 Random Glucose Lactic Acid Calcium Phosphorus Magnesium Total Bilirubin AST ALT Alkaline Phosphatase Creatine Kinase Troponin I Total Protein Albumin Triglycerides Cholesterol Total LDL Cholesterol HDL Cholesterol Urine Color Urine Appearance Urine pH Ur Specific [place] Urine Protein Urine Glucose (UA) Urine Ketones Urine Blood Urine Nitrite Urine Bilirubin Urine Urobilinogen Ur Leukocyte Esterase Urine WBC (Auto) Urine RBC (Auto) Blood Type Antibody Screen 03/07/17 03/07/17 06:00 06:00 WBC RBC Hgb Hct MCV MCH MCHC RDW Plt Count MPV Neutrophils % Lymphocytes % Monocytes % Eosinophils % Basophils % PT with INR INR PTT (Actin FS) VBG pH POC VBG pCO2 POC VBG pO2 Mixed VBG HCO3 Sodium 137 Potassium 3.6 Chloride 100 Carbon Dioxide 27 Anion Gap 10 BUN 15 D Creatinine 0.9 D Creat Clearance w eGFR > 60 POC Glucometer Random Glucose 176 H D Lactic Acid Calcium 7.5 L Phosphorus 3.6 Magnesium 1.8 D Total Bilirubin 0.3 AST 39 H ALT 27 Alkaline Phosphatase 82 Creatine Kinase Troponin I 0.20 H D Cancelled Total Protein 6.8 Albumin 3.3 L Triglycerides 186 H D Cholesterol 141 Total LDL Cholesterol 48 D HDL Cholesterol 69 H Urine Color Urine Appearance Urine pH Ur Specific [place] Urine Protein Urine Glucose (UA) Urine Ketones Urine Blood Urine Nitrite Urine Bilirubin Urine Urobilinogen Ur Leukocyte Esterase Urine WBC (Auto) Urine RBC (Auto) Blood Type Antibody Screen <Ronny Cardona - Last Filed: 03/07/17 09:21> Vital Signs: Vital Signs Temperature 98.0 F 03/07/17 14:30 Pulse Rate 95 H 03/07/17 14:30 Respiratory Rate 20 03/07/17 14:30 Blood Pressure 91/56 03/07/17 14:30 O2 Sat by Pulse Oximetry (%) 94 L 03/07/17 09:00 Labs: CBC, BMP 03/07/17 06:00 03/07/17 06:00 <Manoj Juan - Last Filed: 03/07/17 14:50> Imaging - Results Chest X-ray: Report Reviewed X-ray: Report Reviewed EKG: Image Reviewed <Ronny Cardona - Last Filed: 03/07/17 09:21> - Results Cat Scan: Report Reviewed (Bilateral lower lobe ATX with bronchiectasis) <Manoj Juan - Last Filed: 03/07/17 14:50> Problem List - Problems (1) Pneumonia Assessment/Plan: Start IV Abx for CAP Code(s): J18.9 - PNEUMONIA, UNSPECIFIED ORGANISM QualifierTitle: Pneumonia type: due to unspecified organism Laterality: right Lung location: lower lobe of lung Qualified Code(s): J18.1 - Lobar pneumonia, unspecified organism (2) Sepsis Assessment/Plan: Follow Bld Cx Follow CBC, fevers. Continue Abx. Code(s): A41.9 - SEPSIS, UNSPECIFIED ORGANISM QualifierTitle: Sepsis type: sepsis due to unspecified organism Qualified Code(s): A41.9 - Sepsis, unspecified organism (3) Diabetes Assessment/Plan: Will hold Metformin amd SGLT meds Basal Insulin and short acting. Follow BGM. Code(s): E11.9 - TYPE 2 DIABETES MELLITUS WITHOUT COMPLICATIONS QualifierTitle: Diabetes mellitus type: type 2 Diabetes mellitus complication status: with unspecified complications (4) COPD (chronic obstructive pulmonary disease) with acute bronchitis Assessment/Plan: Solumedrol. Duo-nebs QID RTC. Supplemental O2. Pulm consult Code(s): J44.0 - CHRONIC OBSTRUCTIVE PULMON DISEASE W ACUTE LOWER RESP INFCT; J20.9 - ACUTE BRONCHITIS, UNSPECIFIED (5) Afib Assessment/Plan: Contro V-rate. On Amio and BAB now Previously AT . Code(s): I48.91 - UNSPECIFIED ATRIAL FIBRILLATION QualifierTitle: Atrial fibrillation type: chronic Qualified Code(s): I48.2 - Chronic atrial fibrillation (6) CHF (congestive heart failure) Assessment/Plan: Continue CRISTÓBAL, BAB, IV Lasix, Spironolactone. Follow VS, BP. Code(s): I50.9 - HEART FAILURE, UNSPECIFIED QualifierTitle: Congestive heart failure type: diastolic Congestive heart failure chronicity: acute on chronic Qualified Code(s): I50.33 - Acute on chronic diastolic (congestive) heart failure (7) Do not resuscitate discussion Assessment/Plan: Re-discussed today with Delores [id number]. She confirmed DNNR/DNI. Code(s): Z71.89 - OTHER SPECIFIED COUNSELING <Ronny Cardona - Last Filed: 03/07/17 09:21>
[2017-03-07 09:48] LABS: ARTERIAL BLD GAS O2 SATURATION 97.3 % (90-98.9); ARTERIAL BLOOD GAS BASE EXCESS -0.4 meq/l (-2-2); ARTERIAL BLOOD GAS HCO3 25.5 meq/L (22-26); ARTERIAL BLOOD GAS PO2 97.3 mmHg (68-100); ARTERIAL BLOOD GAS pH 7.34 (7.35-7.45)
[2017-03-07 09:50] LABS: ALLENS TEST POSITIVE; ART PUNCT SITE RIGHT RADIAL
[2017-03-07 09:51] LABS: LPM/O2% 50%; PT. ON O2? YES; TYPE OF O2 VENT MASK
[2017-03-07] MEDS ORDERED: RAMIPRIL 5 MG CAPSULE (FP) PO SCH ×2 (10:00)
[2017-03-07] MEDS ORDERED: DONEPEZIL HCL 10 MG TABLET (FP) PO SCH (10:00)
[2017-03-07] MEDS: AZITHROMYCIN IVPB 500 MG in DEXTROSE 5%-WATER - 250 ML IVPB SCH (10:25)
[2017-03-07] MEDS: FUROSEMIDE 20 MG TABLET (FP) PO SCH (10:26)
[2017-03-07] MEDS: PHENYTOIN NA EXTENDED 100 MG CAPSULE (FP) PO SCH ×2 (10:26→21:26)
[2017-03-07] MEDS: CYANOCOBALAMIN 1,000 MCG TABLET (FP) PO SCH (10:27)
[2017-03-07] MEDS: METOPROLOL TARTRATE 50 MG TABLET (FP) PO SCH ×2 (10:27→21:31)
[2017-03-07] MEDS: SPIRONOLACTONE 25 MG TABLET (FP) PO SCH (10:27)
[2017-03-07] MEDS: APIXABAN 5 MG TABLET PO SCH ×2 (10:27→21:26)
[2017-03-07] MEDS: levETIRAcetam 500 MG TABLET (FP) PO SCH ×2 (10:27→21:27)
[2017-03-07] MEDS: AMIODARONE HCL 200 MG TABLET (FP) PO SCH (10:30)
[2017-03-07] MEDS: POLYETHYLENE GLYCOL 3350 119 GM BTL PO SCH ×2 (10:45→21:27)
[2017-03-07] MEDS: methylPREDNISolone NA SUCC 40 MG/1 ML VIAL IVPUSH SCH (10:46)
[2017-03-07] MEDS: ATORVASTATIN CA 20 MG TABLET (FP) PO SCH (10:46)
[2017-03-07] MEDS: CEFTRIAXONE 1 G/50 ML PREMIX 50 ML IVPB SCH (10:46)
--- NOTE | 2017-03-07 12:29 | CON.PULM ---
Consult Consult Specialty:: PULMONARY Referred by:: Dr. Cardona Reason for Consultation:: pneumonia - History of Present Illness Chief Complaint: shortness of breath History of Present Illness: 86yo male with h/o CAD s/p CABG, hyperlipidemia, DM, atrial fibrillation on anticoagulation, COPD, seizure disorder s/p traumatic brain injury, RADHA refusing CPAP who presents with worsening cough, congestion and shortness of breath x 3 days. Reports cough with white sputum. No sick contacts. Febrile to 101.5 on admission, rapid response called after found hypoxic on O2, CT chest done showing early infiltrate at the right base. Now saturating mid 90s on 50% ventimask. Reports compliance on Eliquis. Does not use oxygen at home. He is a former smoker. 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 No: Addictions, Anxiety, Bipolar, Panic, Psychosis, Schizophrenia, Other Musculoskeletal: Yes: Osteoarthritis Dermatology: Yes: Basal Cell, Other (Tinea corporis.) - Past Surgical History Past Surgical History: Yes: CABG (X 3), Cholecystectomy - Alcohol/Substance Use Hx Alcohol Use: No - Smoking History Smoking history: Unknown if ever smoked Have you smoked in the past 12 months: No If you are a former smoker, when did you quit?: 2006 - Social History History of Recent Travel: No Home Medications - Allergies Allergies/Adverse Reactions: Allergies Allergy/AdvReac Type Severity Reaction Status Date / Time No Known Allergies Allergy Verified 03/06/17 11:04 - Home Medications Home Medications: Ambulatory Orders Apixaban [Eliquis] 5 mg PO BID 06/23/16 Cyanocobalamin [Vitamin B12 -] 1,000 mcg PO DAILY 06/23/16 Donepezil HCl [Aricept] 10 mg PO DAILY 06/23/16 Levetiracetam [Keppra -] 1,000 mg PO BID 06/23/16 Metformin HCl [Glucophage] 500 mg PO TID 06/23/16 Metoprolol Tartrate 50 mg PO BID 06/23/16 Phenytoin Na Extended [Dilantin -] 200 mg PO BID 06/23/16 Ramipril 10 mg PO DAILY 06/23/16 Sertraline HCl [Zoloft] 50 mg PO DAILY 06/23/16 Simvastatin 40 mg PO DAILY 06/23/16 Amiodarone HCl [Cordarone -] 200 mg PO BID 03/06/17 Dapagliflozin Propanediol [Farxiga] 10 mg PO DAILY 03/06/17 Furosemide [Lasix] 20 mg PO DAILY 03/06/17 Spironolactone 25 mg PO DAILY 03/06/17 Review of Systems - Review of Systems Constitutional: reports: Fever. denies: Weakness Eyes: denies: Recent Change in Vision HENT: denies: Nasal Congestion, Throat Pain Neck: denies: Stiffness, Tenderness Cardiovascular: reports: Shortness of Breath. denies: Chest Pain, Palpitations Respiratory: reports: Cough, SOB, SOB on Exertion. denies: Hemoptysis Gastrointestinal: denies: Abdominal Pain, Nausea, Vomiting Genitourinary: denies: Dysuria, Hematuria Neurological: denies: Dizziness, Headache Physical Exam Vital Sings: Vital Signs Temperature 99.4 F 03/07/17 09:05 Pulse Rate 84 03/07/17 09:05 Respiratory Rate 20 03/07/17 09:05 Blood Pressure 101/52 03/07/17 09:05 O2 Sat by Pulse Oximetry (%) 95 03/06/17 21:00 Constitutional: Yes: Mild Distress Eyes: Yes: Conjunctiva Clear, EOM Intact HENT: Yes: Atraumatic, Normocephalic Neck: Yes: Supple, Trachea Midline Cardiovascular: Yes: Regular Rate and Rhythm Respiratory: Yes: Diminished (distant breath sounds). No: Wheezes ...Clubbing: No Gastrointestinal: Yes: Normal Bowel Sounds, Soft. No: Tenderness Edema: No Neurological: Yes: Alert, Oriented Labs: CBC, BMP 03/07/17 06:00 03/07/17 06:00 ABG Results ABG pH 7.34 (7.35-7.45) L 03/07/17 09:40 ABG pCO2 at Pt Temp 49.1 mmHg (35-45) H 03/07/17 09:40 ABG pO2 at Pt Temp 97.3 mmHg (68-100) D 03/07/17 09:40 ABG HCO3 25.5 meq/L (22-26) 03/07/17 09:40 ABG O2 Sat (Measured) 97.3 % (90-98.9) 03/07/17 09:40 ABG O2 Content 19.5 % vol (15-22) 03/07/17 09:40 ABG Base Excess -0.4 meq/l (-2-2) 03/07/17 09:40 Imaging - Results Chest X-ray: Report Reviewed, Image Reviewed Cat Scan: Report Reviewed, Image Reviewed (early right infiltrate) Problem List - Problems (1) Acute respiratory failure with hypoxia Code(s): J96.01 - ACUTE RESPIRATORY FAILURE WITH HYPOXIA (2) Pneumonia Code(s): J18.9 - PNEUMONIA, UNSPECIFIED ORGANISM Qualifiers: Pneumonia type: due to unspecified organism Laterality: right Lung location: lower lobe of lung Qualified Code(s): J18.1 - Lobar pneumonia, unspecified organism (3) Sepsis Code(s): A41.9 - SEPSIS, UNSPECIFIED ORGANISM Qualifiers: Sepsis type: sepsis due to unspecified organism Qualified Code(s): A41.9 - Sepsis, unspecified organism (4) Lactic acidosis Code(s): E87.2 - ACIDOSIS (5) Elevated troponin Code(s): R74.8 - ABNORMAL LEVELS OF OTHER SERUM ENZYMES (6) CAD (coronary artery disease) Code(s): I25.10 - ATHSCL HEART DISEASE OF [place] CORONARY ARTERY W/O ANG PCTRS (7) Atrial fibrillation Code(s): I48.91 - UNSPECIFIED ATRIAL FIBRILLATION Assessment/Plan Acute Hypoxic Respiratory Failure Pneumonia Acute COPD Exacerbation CAD s/p CABG Atrial Fibrillation - agree with current antibiotics - f/u cultures - IV medrol - inhaled bronchodilators standing and PRN - O2 to keep SpO2 >90% - rate control - continue anticoagulation - will follow Thank you for this consult Amado Bailey MD
--- NOTE | 2017-03-07 14:35 | CON.CARD ---
Consult Consult Specialty:: Cardiology Referred by:: Ronny Cardona MD Reason for Consultation:: h/o CABG, Afib - History of Present Illness Chief Complaint: Dyspnea History of Present Illness: 86yo male with h/o CAD s/p CABGx3, hyperlipidemia, DM, paroxysmal atrial fibrillation on anticoagulation, COPD, seizure disorder s/p traumatic brain injury, RADHA refusing CPAP who presented with increasing falls, worsening cough , congestion, shortness of breath, lethargy over last 3 days. Reports cough with white sputum. No sick contacts. Febrile to 101.5 on admission, found hypoxic on O2, CT chest done shows bilateral infiltrates/atectasis. Now saturating mid 90s on 50% ventimask. Reports compliance on Eliquis. Does not use oxygen at home. He is a former smoker. 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 No: Addictions, Anxiety, Bipolar, Panic, Psychosis, Schizophrenia, Other Musculoskeletal: Yes: Osteoarthritis Dermatology: Yes: Basal Cell, Other (Tinea corporis.) - Past Surgical History Past Surgical History: Yes: CABG (X 3), Cholecystectomy - Alcohol/Substance Use Hx Alcohol Use: No - Smoking History Smoking history: Unknown if ever smoked Have you smoked in the past 12 months: No If you are a former smoker, when did you quit?: 2006 - Social History History of Recent Travel: No Home Medications - Allergies Allergies/Adverse Reactions: Allergies Allergy/AdvReac Type Severity Reaction Status Date / Time No Known Allergies Allergy Verified 03/06/17 11:04 - Home Medications Home Medications: Ambulatory Orders Apixaban [Eliquis] 5 mg PO BID 06/23/16 Cyanocobalamin [Vitamin B12 -] 1,000 mcg PO DAILY 06/23/16 Donepezil HCl [Aricept] 10 mg PO DAILY 06/23/16 Levetiracetam [Keppra -] 1,000 mg PO BID 06/23/16 Metformin HCl [Glucophage] 500 mg PO TID 06/23/16 Metoprolol Tartrate 50 mg PO BID 06/23/16 Phenytoin Na Extended [Dilantin -] 200 mg PO BID 06/23/16 Ramipril 10 mg PO DAILY 06/23/16 Sertraline HCl [Zoloft] 50 mg PO DAILY 06/23/16 Simvastatin 40 mg PO DAILY 06/23/16 Amiodarone HCl [Cordarone -] 200 mg PO BID 03/06/17 Dapagliflozin Propanediol [Farxiga] 10 mg PO DAILY 03/06/17 Furosemide [Lasix] 20 mg PO DAILY 03/06/17 Spironolactone 25 mg PO DAILY 03/06/17 Review of Systems - Review of Systems Constitutional: reports: Lethargy Respiratory: reports: Cough Neurological: reports: Unsteady Gait Vital Signs: Vital Signs Temperature 98.0 F 03/07/17 14:30 Pulse Rate 95 H 03/07/17 14:30 Respiratory Rate 20 03/07/17 14:30 Blood Pressure 81/52 03/07/17 14:30 O2 Sat by Pulse Oximetry (%) 94 L 03/07/17 09:00 Constitutional: Yes: No Distress, Calm Neck: Yes: Supple Respiratory: Yes: Regular, Diminished, On Venti-Mask Gastrointestinal: Yes: Normal Bowel Sounds, Soft, Abdomen, Obese Cardiovascular: Yes: Regular Rate and Rhythm JVD: No Carotid Bruit: No Heart Sounds: Yes: S1, S2 Edema: No - Other Data Labs, Other Data: CBC, BMP 03/07/17 06:00 03/07/17 06:00 INR, PTT INR 1.39 (0.82-1.09) H D 03/06/17 11:05 Troponin, BNP 03/07/17 03/07/17 06:00 06:00 Troponin I 0.20 H D Cancelled Troponin, BNP 03/07/17 03/07/17 06:00 06:00 Troponin I 0.20 H D Cancelled NSR nonspec T wave changes Ejection Fraction %: LVEF > or = 40 % Problem List - Problems (1) Diastolic dysfunction without heart failure Code(s): I51.9 - HEART DISEASE, UNSPECIFIED (2) Acute respiratory failure with hypoxia Code(s): J96.01 - ACUTE RESPIRATORY FAILURE WITH HYPOXIA (3) Atrial fibrillation Code(s): I48.91 - UNSPECIFIED ATRIAL FIBRILLATION Qualifiers: Atrial fibrillation type: paroxysmal Qualified Code(s): I48.0 - Paroxysmal atrial fibrillation (4) CAD (coronary artery disease) Code(s): I25.10 - ATHSCL HEART DISEASE OF [place] CORONARY ARTERY W/O ANG PCTRS Qualifiers: Coronary Disease-Associated Artery/Lesion type: bypass graft [place] vs. transplanted heart: [place] heart Associated angina: without angina Qualified Code(s): I25.810 - Atherosclerosis of coronary artery bypass graft(s) without angina pectoris (5) COPD (chronic obstructive pulmonary disease) with acute bronchitis Code(s): J44.0 - CHRONIC OBSTRUCTIVE PULMON DISEASE W ACUTE LOWER RESP INFCT; J20.9 - ACUTE BRONCHITIS, UNSPECIFIED (6) Elevated troponin Code(s): R74.8 - ABNORMAL LEVELS OF OTHER SERUM ENZYMES (7) Pneumonia Code(s): J18.9 - PNEUMONIA, UNSPECIFIED ORGANISM Qualifiers: Pneumonia type: due to unspecified organism Laterality: right Lung location: lower lobe of lung Qualified Code(s): J18.1 - Lobar pneumonia, unspecified organism (8) CVA (cerebral infarction) Code(s): I63.9 - CEREBRAL INFARCTION, UNSPECIFIED (9) Diabetes Code(s): E11.9 - TYPE 2 DIABETES MELLITUS WITHOUT COMPLICATIONS Qualifiers: Diabetes mellitus type: type 2 Diabetes mellitus complication status: with unspecified complications (10) S/P CABG (coronary artery bypass graft) Code(s): Z95.1 - PRESENCE OF AORTOCORONARY BYPASS GRAFT (11) Demand ischemia Code(s): I24.8 - OTHER FORMS OF ACUTE ISCHEMIC HEART DISEASE Assessment/Plan 1. Acute hypoxic respiratory failure referable to pneumonia 2. AE COPD 3. Paroxysmal atrial tachycardia, currently in sinus rhythm 4. CAD post CABGx3 with demand ischemia 5. Post-CABG PAF [id number] score of 5 6. HTN 7. NIDDM 8. Hyperlipidemia 9. Seizure disorder 10. Obstructive sleep apnea history 11. Diastolic dysfunction PLAN: 1. ABx per C&S, IV steroids, BD standing and PRN, O2 to maintain saO2>90% 2. Continue Eliquis 5 bid, Lopressor 50 bis, Altace 2.5 qd, Lipitor 20 qd, Amio 200 qd, Aldactone 25 qd and Lasix 20 qd 3. F/u trops to document peak 4. Thank you for consultative opportunity
--- NOTE | 2017-03-07 15:19 | EKG ---
Test Reason : Blood Pressure : / mmHG Vent. Rate : 082 BPM Atrial Rate : 082 BPM P-R Int : 000 ms QRS Dur : 088 ms QT Int : 410 ms P-R-T Axes : -25 041 055 degrees QTc Int : 479 ms SINUS RHYTHM WITH 1ST DEGREE A-V BLOCK OTHERWISE NORMAL ECG WHEN COMPARED WITH ECG OF 06-MAR-2017, NO SIGNIFICANT CHANGE Confirmed by JUJU RENTERIA MD ([id number]) on 03/07/2017 3:19:34 PM Referred By: KEIKO RICO Confirmed By:JUJU RENTERIA MD
[2017-03-08] MEDS: ALBUTEROL SO4 2.5/IPRATROPIUM 0.5 INH SOL 3 ML VIAL.NEB. NEB SCH ×3 (06:22→19:47)
[2017-03-08] MEDS: INSULIN SLIDING SCALE (NOVOLOG) 1 VIAL SQ SCH ×4 (06:59→23:05)
[2017-03-08] MEDS: INSULIN DETEMIR 100 UNITS/ML MDV SQ SCH (06:59)
[2017-03-08] MEDS ORDERED: INSULIN DETEMIR 100 UNITS/ML MDV SQ ONE (07:05)
[2017-03-08] MEDS ORDERED: INSULIN (NOVOLOG) ASPART 100 UNITS/ML 10ML VIAL ONE ×2 (07:05→17:32)
[2017-03-08 07:40] LABS: BASO % 0.2 % (0-2.0); EOS % 0.3 % (0-4.5); LYMPH # 1.8 (8-40); MCH 32.3 pg (25.7-33.7); MCHC 32.6 g/dl (32.0-35.9); MEAN PLT VOLUME 7.4 fl (7.5-11.1); MONO # 0.6 # (3.8-10.2); NEUT # 2.8 # (42.8-82.8); NEUT % 52.7 % (42.8-82.8); PLATELET COUNT 127 K/MM3 (134-434); RDW 14.2 % (11.9-15.9); WHITE BLOOD COUNT 5.3 K/mm3 (4.0-10.0)
[2017-03-08 08:06] LABS: ALBUMIN 2.9 g/dl (3.4-5.0); ALK PHOS 62 U/L (45-117); ANION GAP 9 (8-16); BILIRUBIN,TOTAL 0.3 mg/dL (0.2-1.0); CALCIUM 7.7 mg/dL (8.5-10.1); CO2 30 mmol/L (21-32); GLUCOSE,RANDOM 137 mg/dL (74-106); SGOT/AST 47 U/L (15-37); SGPT/ALT 28 U/L (12-78); TOT PROT 6.2 g/dl (6.4-8.2)
[2017-03-08] MEDS ORDERED: PT OWN MED DRAWER 7, Y5N ONE ×2 (09:05→22:56)
[2017-03-08] MEDS: RAMIPRIL 2.5 MG CAPSULE (FP) PO SCH (09:11)
[2017-03-08] MEDS: METOPROLOL TARTRATE 50 MG TABLET (FP) PO SCH ×2 (09:11→23:05)
[2017-03-08] MEDS: CEFTRIAXONE 1 G/50 ML PREMIX 50 ML IVPB SCH (09:11)
[2017-03-08] MEDS: AZITHROMYCIN IVPB 500 MG in DEXTROSE 5%-WATER - 250 ML IVPB SCH (09:11)
[2017-03-08] MEDS: methylPREDNISolone NA SUCC 40 MG/1 ML VIAL IVPUSH SCH (09:11)
[2017-03-08] MEDS: SPIRONOLACTONE 25 MG TABLET (FP) PO SCH (09:11)
[2017-03-08] MEDS: levETIRAcetam 500 MG TABLET (FP) PO SCH ×2 (09:11→23:04)
[2017-03-08] MEDS: CYANOCOBALAMIN 1,000 MCG TABLET (FP) PO SCH (09:11)
[2017-03-08] MEDS: FUROSEMIDE 20 MG TABLET (FP) PO SCH (09:12)
[2017-03-08] MEDS: APIXABAN 5 MG TABLET PO SCH ×2 (09:12→23:03)
[2017-03-08] MEDS: PHENYTOIN NA EXTENDED 100 MG CAPSULE (FP) PO SCH ×2 (09:12→23:04)
[2017-03-08] MEDS: AMIODARONE HCL 200 MG TABLET (FP) PO SCH (09:12)
[2017-03-08] MEDS: ATORVASTATIN CA 20 MG TABLET (FP) PO SCH (09:13)
[2017-03-08] MEDS: POLYETHYLENE GLYCOL 3350 119 GM BTL PO SCH ×2 (09:14→23:05)
--- NOTE | 2017-03-08 11:37 | PN ---
Progress Note, Physician Chief Complaint: More comfortable today Noted mildly elevated Trop I and it was discussed with cardiology. 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 CABG x3, Hx of PAF after CABG, ASHD, HYperlipidemia Hx of ST vs atrial tachycardia. A.Fib DM type 2 previously well controlled HTN [place] [facility] [place] Cholecystectomy. Varicose veins. Dysphagia.MBS-slow transit. Obstructive sleep apnea-refused CPAP. Gait disorder - Current Medication List Current Medications: Active Medications Albuterol/Ipratropium (Duoneb -) 1 amp NEB QIDR [facility] Last Admin: 03/08/17 06:22 Dose: 1 amp Amiodarone HCl (Cordarone -) 200 mg PO DAILY [facility] Last Admin: 03/08/17 09:12 Dose: 200 mg Apixaban (Eliquis -) 5 mg PO BID [facility] Last Admin: 03/08/17 09:12 Dose: 5 mg Atorvastatin Calcium (Lipitor -) 20 mg PO DAILY [facility] Last Admin: 03/08/17 09:13 Dose: 20 mg Cyanocobalamin (Vitamin B12 -) 1,000 mcg PO DAILY [facility] Last Admin: 03/08/17 09:11 Dose: 1,000 mcg Furosemide (Lasix -) 20 mg PO DAILY [facility] Last Admin: 03/08/17 09:12 Dose: 20 mg Azithromycin 500 mg/ Dextrose 250 mls @ 250 mls/hr IVPB DAILY [facility] Last Admin: 03/08/17 09:11 Dose: 250 mls/hr CEFTRIAXONE 1 G/50 ML PREMIX (Ceftriaxone 1 Gm-D5w Bag) 50 mls @ 100 mls/hr IVPB DAILY [facility] Last Admin: 03/08/17 09:11 Dose: 100 mls/hr Insulin Aspart (Novolog Vial Sliding Scale -) 1 vial SQ ACHS [facility] PRN Reason: Protocol Last Admin: 03/08/17 11:26 Dose: 2 units Insulin Detemir (Levemir Vial) 10 units SQ DAILY@0700 [facility] Last Admin: 03/08/17 06:59 Dose: 10 units Levetiracetam (Keppra -) 1,000 mg PO BID [facility] Last Admin: 03/08/17 09:11 Dose: 1,000 mg Methylprednisolone Sodium Succinate (Solu-Medrol -) 40 mg IVPUSH DAILY [facility] Last Admin: 03/08/17 09:11 Dose: 40 mg Metoprolol Tartrate (Lopressor -) 50 mg PO BID [facility] Last Admin: 03/08/17 09:11 Dose: 50 mg Phenytoin Sodium (Dilantin -) 200 mg PO BID [facility] Last Admin: 03/08/17 09:12 Dose: 200 mg Polyethylene Glycol (Miralax (For Daily Use) -) 17 gm PO BID [facility] Last Admin: 03/08/17 09:14 Dose: 17 gm Ramipril (Altace -) 2.5 mg PO DAILY [facility] Last Admin: 03/08/17 09:11 Dose: 2.5 mg Sodium Chloride (Normal Saline -) 960 ml IV Q20M PRN PRN Reason: MAP<65mm Hg OR SBP <90 Spironolactone (Aldactone -) 25 mg PO DAILY [facility] Last Admin: 03/08/17 09:11 Dose: 25 mg - Objective Vital Signs: Vital Signs Temperature 98 F 03/08/17 06:00 Pulse Rate 67 03/08/17 06:00 Respiratory Rate 20 03/08/17 06:00 Blood Pressure 104/56 03/08/17 06:00 O2 Sat by Pulse Oximetry (%) 96 03/07/17 21:00 Constitutional: Yes: Well Nourished, Calm Eyes: Yes: Conjunctiva Clear, EOM Intact HENT: Yes: Atraumatic, Normocephalic Neck: Yes: Supple, Trachea Midline Cardiovascular: Yes: Regular Rate and Rhythm. No: JVD Respiratory: Yes: Regular, On Nasal O2, Rhonchi Gastrointestinal: Yes: Normal Bowel Sounds, Soft. No: Abdomen, Obese ...Rectal Exam: Yes: Deferred Genitourinary: No: Anuria, Bladder Distention Breast(s): Yes: WNL Musculoskeletal: Yes: WNL Extremities: No: Amputation, Calf Tenderness Edema: No Integumentary: Yes: WNL Neurological: Yes: Alert, Oriented. No: Aphasia, Dysarthria ...Motor Strength: WNL Labs: CBC, BMP 03/08/17 06:30 03/08/17 06:30 INR, PTT INR 1.39 (0.82-1.09) H D 03/06/17 11:05 - ....Imaging Chest X-ray: Report Reviewed X-ray: Report Reviewed Cat Scan: Report Reviewed Problem List - Problems (1) Pneumonia Assessment/Plan: Start IV Abx for CAP Noted bronchiectasis on CT with infiltrates. Code(s): J18.9 - PNEUMONIA, UNSPECIFIED ORGANISM Qualifiers: Pneumonia type: due to unspecified organism Laterality: right Lung location: lower lobe of lung Qualified Code(s): J18.1 - Lobar pneumonia, unspecified organism (2) Sepsis Assessment/Plan: Follow Bld Cx Follow CBC, fevers. Continue Abx. Code(s): A41.9 - SEPSIS, UNSPECIFIED ORGANISM Qualifiers: Sepsis type: sepsis due to unspecified organism Qualified Code(s): A41.9 - Sepsis, unspecified organism (3) Diabetes Assessment/Plan: Will hold Metformin amd SGLT meds Basal Insulin and short acting. Follow BGM. Code(s): E11.9 - TYPE 2 DIABETES MELLITUS WITHOUT COMPLICATIONS Qualifiers: Diabetes mellitus type: type 2 Diabetes mellitus complication status: with unspecified complications (4) COPD (chronic obstructive pulmonary disease) with acute bronchitis Assessment/Plan: Solumedrol. Duo-nebs QID RTC. Supplemental O2. Pulm consult Code(s): J44.0 - CHRONIC OBSTRUCTIVE PULMON DISEASE W ACUTE LOWER RESP INFCT; J20.9 - ACUTE BRONCHITIS, UNSPECIFIED (5) Afib Assessment/Plan: Contro V-rate. On Amio and BAB now Previously AT . Code(s): I48.91 - UNSPECIFIED ATRIAL FIBRILLATION Qualifiers: Atrial fibrillation type: chronic Qualified Code(s): I48.2 - Chronic atrial fibrillation (6) CHF (congestive heart failure) Assessment/Plan: Continue CRISTÓBAL, BAB, IV Lasix, Spironolactone. Follow VS, BP. Code(s): I50.9 - HEART FAILURE, UNSPECIFIED Qualifiers: Congestive heart failure type: diastolic Congestive heart failure chronicity: acute on chronic Qualified Code(s): I50.33 - Acute on chronic diastolic (congestive) heart failure (7) Do not resuscitate discussion Assessment/Plan: Re-discussed today with Delores ValeTltjaa-EDB-hirhpyhr. She confirmed DNNR/DNI. Code(s): Z71.89 - OTHER SPECIFIED COUNSELING (8) Acute IN Assessment/Plan: Probably demand ischemia/ IN Continue to follow up Code(s): I21.9 - ACUTE MYOCARDIAL INFARCTION, UNSPECIFIED Qualifiers: Myocardial infarction ST status: non-ST elevation myocardial infarction Qualified Code(s): I21.4 - Non-ST elevation (NSTEMI) myocardial infarction
--- NOTE | 2017-03-08 11:41 | PN ---
Progress Note (short form) - Note Progress Note: PULMONARY APPEARS TO BE RESTING COMFORTABLY VSS/AFEBRILE ANICTERIC DIMINISHED BREATH SOUNDS S1S2 BS+ LESS EDEMA CT CHEST/EKG/LABS/MEDS/NOTES/MICRO REVIEWED Acute Hypoxic Respiratory Failure resolving Pneumonia RLL Acute COPD Exacerbation CAD s/p CABG h/o Atrial Fibrillation - agree with current antibiotics - f/u cultures - IV medrol to change to oral in AM - inhaled bronchodilators standing and PRN - O2 to keep SpO2 >90% - rate control - continue anticoagulation - will follow thank you Alejandra BERGER MD
--- NOTE | 2017-03-08 11:47 | PN ---
Progress Note, Physician Chief Complaint: Events noted ECG reveals sinus rhythm Complains of cough - nonproductive History of Present Illness: Patient was seen and examined. Awake and alert. Chart was reviewed Denies chest pain, less SOB and no palpitations Less cough - Current Medication List Current Medications: Active Medications Albuterol/Ipratropium (Duoneb -) 1 amp NEB QIDR [facility] Last Admin: 03/08/17 06:22 Dose: 1 amp Amiodarone HCl (Cordarone -) 200 mg PO DAILY [facility] Last Admin: 03/08/17 09:12 Dose: 200 mg Apixaban (Eliquis -) 5 mg PO BID [facility] Last Admin: 03/08/17 09:12 Dose: 5 mg Atorvastatin Calcium (Lipitor -) 20 mg PO DAILY [facility] Last Admin: 03/08/17 09:13 Dose: 20 mg Cyanocobalamin (Vitamin B12 -) 1,000 mcg PO DAILY [facility] Last Admin: 03/08/17 09:11 Dose: 1,000 mcg Furosemide (Lasix -) 20 mg PO DAILY [facility] Last Admin: 03/08/17 09:12 Dose: 20 mg Azithromycin 500 mg/ Dextrose 250 mls @ 250 mls/hr IVPB DAILY [facility] Last Admin: 03/08/17 09:11 Dose: 250 mls/hr CEFTRIAXONE 1 G/50 ML PREMIX (Ceftriaxone 1 Gm-D5w Bag) 50 mls @ 100 mls/hr IVPB DAILY [facility] Last Admin: 03/08/17 09:11 Dose: 100 mls/hr Insulin Aspart (Novolog Vial Sliding Scale -) 1 vial SQ ACHS [facility] PRN Reason: Protocol Last Admin: 03/08/17 11:26 Dose: 2 units Insulin Detemir (Levemir Vial) 10 units SQ DAILY@0700 [facility] Last Admin: 03/08/17 06:59 Dose: 10 units Levetiracetam (Keppra -) 1,000 mg PO BID [facility] Last Admin: 03/08/17 09:11 Dose: 1,000 mg Methylprednisolone Sodium Succinate (Solu-Medrol -) 40 mg IVPUSH DAILY [facility] Last Admin: 03/08/17 09:11 Dose: 40 mg Metoprolol Tartrate (Lopressor -) 50 mg PO BID [facility] Last Admin: 03/08/17 09:11 Dose: 50 mg Phenytoin Sodium (Dilantin -) 200 mg PO BID [facility] Last Admin: 03/08/17 09:12 Dose: 200 mg Polyethylene Glycol (Miralax (For Daily Use) -) 17 gm PO BID [facility] Last Admin: 03/08/17 09:14 Dose: 17 gm Ramipril (Altace -) 2.5 mg PO DAILY [facility] Last Admin: 03/08/17 09:11 Dose: 2.5 mg Sodium Chloride (Normal Saline -) 960 ml IV Q20M PRN PRN Reason: MAP<65mm Hg OR SBP <90 Spironolactone (Aldactone -) 25 mg PO DAILY [facility] Last Admin: 03/08/17 09:11 Dose: 25 mg - Objective Vital Signs: Vital Signs Temperature 98.1 F 03/08/17 09:00 Pulse Rate 76 03/08/17 09:00 Respiratory Rate 20 03/08/17 09:00 Blood Pressure 100/56 03/08/17 09:00 O2 Sat by Pulse Oximetry (%) 97 03/08/17 09:00 Eyes: Yes: PERRL Neck: Yes: Supple Cardiovascular: Yes: Regular Rate and Rhythm, S1, S2 Respiratory: Yes: Diminished Gastrointestinal: Yes: Normal Bowel Sounds, Soft. No: Tenderness Edema: No Labs: CBC, BMP 03/08/17 06:30 03/08/17 06:30 INR, PTT INR 1.39 (0.82-1.09) H D 03/06/17 11:05 Assessment/Plan 1. Acute hypoxic respiratory failure referable to pneumonia 2. Acute exacerbation of COPD 3. Paroxysmal atrial tachycardia and PAF, currently in sinus rhythm 4. CAD post CABGx3 with demand ischemia - elevation of troponin 5. PAF [id number] score of 5 6. HTN 7. NIDDM 8. Hyperlipidemia 9. Seizure disorder 10. Obstructive sleep apnea 11. Diastolic dysfunction PLAN: 1. Antibiotic, IV steroids, bronchodilator and O2 2. Continue Eliquis 5 bid, Lopressor 50 bid, Altace 2.5 qd, Lipitor 20 qd, Aldactone 25 qd and Lasix 20 qd. Consider stopping Amiodarone as per discussion with Dr. aCrdona 3. Trend troponin - likely demand ischemia. No further cardiac intervention is needed at this time Further plans are to follow Alek Wright MD
[2017-03-09] MEDS: INSULIN SLIDING SCALE (NOVOLOG) 1 VIAL SQ SCH ×4 (06:00→21:32)
[2017-03-09] MEDS ORDERED: PT OWN MED DRAWER 7, Y5N ONE ×5 (06:06→20:57)
[2017-03-09] MEDS: ALBUTEROL SO4 2.5/IPRATROPIUM 0.5 INH SOL 3 ML VIAL.NEB. NEB SCH ×4 (06:10→18:04)
[2017-03-09] MEDS: INSULIN DETEMIR 100 UNITS/ML MDV SQ SCH (06:27)
[2017-03-09] MEDS ORDERED: INSULIN (NOVOLOG) ASPART 100 UNITS/ML 10ML VIAL ONE ×2 (06:58→20:46)
--- NOTE | 2017-03-09 08:06 | PN ---
Progress Note, Physician Chief Complaint: Feels better, afebrile, eats his breakfast. 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 CABG x3, Hx of PAF after CABG, ASHD, HYperlipidemia Hx of ST vs atrial tachycardia. A.Fib DM type 2 previously well controlled HTN COPD[place] [facility] [place]. Cholecystectomy. Varicose veins. Dysphagia.MBS-slow transit. Obstructive sleep apnea-refused CPAP. Gait disorder - Current Medication List Current Medications: Active Medications Albuterol/Ipratropium (Duoneb -) 1 amp NEB QIDR [facility] Last Admin: 03/09/17 06:10 Dose: 1 amp Amiodarone HCl (Cordarone -) 100 mg PO DAILY [facility] Apixaban (Eliquis -) 5 mg PO BID [facility] Last Admin: 03/08/17 23:03 Dose: 5 mg Atorvastatin Calcium (Lipitor -) 20 mg PO DAILY [facility] Last Admin: 03/08/17 09:13 Dose: 20 mg Cyanocobalamin (Vitamin B12 -) 1,000 mcg PO DAILY [facility] Last Admin: 03/08/17 09:11 Dose: 1,000 mcg Furosemide (Lasix -) 20 mg PO DAILY [facility] Last Admin: 03/08/17 09:12 Dose: 20 mg Azithromycin 500 mg/ Dextrose 250 mls @ 250 mls/hr IVPB DAILY [facility] Last Admin: 03/08/17 09:11 Dose: 250 mls/hr CEFTRIAXONE 1 G/50 ML PREMIX (Ceftriaxone 1 Gm-D5w Bag) 50 mls @ 100 mls/hr IVPB DAILY [facility] Last Admin: 03/08/17 09:11 Dose: 100 mls/hr Insulin Aspart (Novolog Vial Sliding Scale -) 1 vial SQ ACHS [facility] PRN Reason: Protocol Last Admin: 03/09/17 06:00 Dose: Not Given Insulin Detemir (Levemir Vial) 10 units SQ DAILY@0700 [facility] Last Admin: 03/09/17 06:27 Dose: 10 units Levetiracetam (Keppra -) 1,000 mg PO BID [facility] Last Admin: 03/08/17 23:04 Dose: 1,000 mg Methylprednisolone Sodium Succinate (Solu-Medrol -) 40 mg IVPUSH DAILY [facility] Last Admin: 03/08/17 09:11 Dose: 40 mg Metoprolol Tartrate (Lopressor -) 50 mg PO BID [facility] Last Admin: 12/26/17 23:05 Dose: Not Given Phenytoin Sodium (Dilantin -) 200 mg PO BID [facility] Last Admin: 03/08/17 23:04 Dose: 200 mg Polyethylene Glycol (Miralax (For Daily Use) -) 17 gm PO BID [facility] Last Admin: 03/08/17 23:05 Dose: Not Given Ramipril (Altace -) 2.5 mg PO DAILY [facility] Last Admin: 03/08/17 09:11 Dose: 2.5 mg Sodium Chloride (Normal Saline -) 960 ml IV Q20M PRN PRN Reason: MAP<65mm Hg OR SBP <90 Spironolactone (Aldactone -) 25 mg PO DAILY [facility] Last Admin: 03/08/17 09:11 Dose: 25 mg - Objective Vital Signs: Vital Signs Temperature 98.1 F 03/09/17 05:45 Pulse Rate 127 H 03/09/17 05:45 Respiratory Rate 20 03/09/17 05:45 Blood Pressure 113/59 03/09/17 05:45 O2 Sat by Pulse Oximetry (%) 95 03/08/17 21:00 Constitutional: Yes: No Distress, Calm Eyes: Yes: Conjunctiva Clear, EOM Intact HENT: Yes: Atraumatic, Normocephalic. No: Drooling Neck: Yes: Supple, Trachea Midline. No: Decreased ROM, Lymphadenopathy Cardiovascular: Yes: Pulse Irregular, S1, S2. No: JVD Respiratory: Yes: Regular, CTA Bilaterally. No: Dullness, Rales, Rhonchi, Wheezes Gastrointestinal: Yes: Normal Bowel Sounds, Soft. No: Ascites, Palpable Mass ...Rectal Exam: Yes: Deferred Genitourinary: No: Anuria Breast(s): Yes: WNL Musculoskeletal: Yes: WNL Extremities: No: Amputation, Calf Tenderness, Cyanosis Edema: No Integumentary: Yes: WNL Neurological: Yes: Alert, Oriented. No: Aphasia, Dysarthria ...Motor Strength: WNL Psychiatric: Yes: WNL Labs: CBC, BMP 03/08/17 06:30 03/08/17 06:30 INR, PTT INR 1.39 (0.82-1.09) H D 03/06/17 11:05 Problem List - Problems (1) Pneumonia Assessment/Plan: Start IV Abx for CAP Noted bronchiectasis on CT with infiltrates. Code(s): J18.9 - PNEUMONIA, UNSPECIFIED ORGANISM Qualifiers: Pneumonia type: due to unspecified organism Laterality: right Lung location: lower lobe of lung Qualified Code(s): J18.1 - Lobar pneumonia, unspecified organism (2) Sepsis Assessment/Plan: Follow Bld Cx Follow CBC, fevers. Continue Abx. Code(s): A41.9 - SEPSIS, UNSPECIFIED ORGANISM Qualifiers: Sepsis type: sepsis due to unspecified organism Qualified Code(s): A41.9 - Sepsis, unspecified organism (3) Diabetes Assessment/Plan: Will hold Metformin amd SGLT meds Basal Insulin and short acting. Follow BGM. Code(s): E11.9 - TYPE 2 DIABETES MELLITUS WITHOUT COMPLICATIONS Qualifiers: Diabetes mellitus type: type 2 Diabetes mellitus complication status: with unspecified complications (4) COPD (chronic obstructive pulmonary disease) with acute bronchitis Assessment/Plan: Solumedrol-will d/c. Duo-nebs QID RTC. Supplemental O2. Pulm consult Code(s): J44.0 - CHRONIC OBSTRUCTIVE PULMON DISEASE W ACUTE LOWER RESP INFCT; J20.9 - ACUTE BRONCHITIS, UNSPECIFIED (5) Afib Assessment/Plan: Contro V-rate. On Amio and BAB now Previously AT . Code(s): I48.91 - UNSPECIFIED ATRIAL FIBRILLATION Qualifiers: Atrial fibrillation type: chronic Qualified Code(s): I48.2 - Chronic atrial fibrillation (6) CHF (congestive heart failure) Assessment/Plan: Continue CRISTÓBAL, BAB, IV Lasix, Spironolactone. Follow VS, BP. Code(s): I50.9 - HEART FAILURE, UNSPECIFIED Qualifiers: Congestive heart failure type: diastolic Congestive heart failure chronicity: acute on chronic Qualified Code(s): I50.33 - Acute on chronic diastolic (congestive) heart failure (7) Do not resuscitate discussion Assessment/Plan: Re-discussed today with eDlores ValeTqheqt-ATN-fzzoleze. She confirmed DNNR/DNI. Code(s): Z71.89 - OTHER SPECIFIED COUNSELING (8) Acute OR Assessment/Plan: Probably demand ischemia/ OR Continue to follow up Code(s): I21.9 - ACUTE MYOCARDIAL INFARCTION, UNSPECIFIED Qualifiers: Myocardial infarction ST status: non-ST elevation myocardial infarction Qualified Code(s): I21.4 - Non-ST elevation (NSTEMI) myocardial infarction
--- NOTE | 2017-03-09 08:09 | DS ---
Physical Examination Vital Signs: Vital Signs Temperature 98.1 F 03/09/17 05:45 Pulse Rate 127 H 03/09/17 05:45 Respiratory Rate 20 03/09/17 05:45 Blood Pressure 113/59 03/09/17 05:45 O2 Sat by Pulse Oximetry (%) 95 03/08/17 21:00 Constitutional: Yes: No Distress, Calm Eyes: Yes: Conjunctiva Clear, EOM Intact HENT: Yes: Atraumatic, Normocephalic Neck: Yes: Supple, Trachea Midline Cardiovascular: Yes: Regular Rate and Rhythm Respiratory: Yes: Regular, CTA Bilaterally Gastrointestinal: Yes: Normal Bowel Sounds, Soft. No: Ascites, Pulsatile Mass, Tenderness, Tenderness, Epigastrium ...Rectal Exam: Yes: Deferred Renal/: No: Anuria, Bladder Distention, CVA Tenderness - Left, CVA Tenderness - Right Breast(s): Yes: WNL Musculoskeletal: No: Joint Stiffness, Joint Swelling Extremities: No: Amputation, Calf Tenderness, Cold, Cyanosis Edema: No Integumentary: Yes: Bruising (chin) Neurological: Yes: Alert, Oriented, Unsteady Gait, Weakness. No: Aphasia, Unresponsive ...Motor Strength: WNL Psychiatric: Yes: WNL Labs: CBC, BMP 03/08/17 06:30 03/08/17 06:30 Discharge Summary Reason For Visit: SEPSIS,PNEMONIA Current Active Problems Acute NE (Acute) Acute respiratory failure with hypoxia (Acute) Afib (Acute) Atrial fibrillation (Acute) CAD (coronary artery disease) (Acute) CHF (congestive heart failure) (Acute) COPD (chronic obstructive pulmonary disease) with acute bronchitis (Acute) Demand ischemia (Acute) Diastolic dysfunction without heart failure (Acute) Do not resuscitate discussion (Acute) Elevated troponin (Acute) Lactic acidosis (Acute) Pneumonia (Acute) S/P CABG (coronary artery bypass graft) (Acute) Sepsis (Acute) - Instructions Referrals: Ronny Cardona MD [Primary Care Provider] - Disposition: CARE HOME FACILITY - Home Medications Comprehensive Discharge Medication List: Ambulatory Orders Apixaban [Eliquis] 5 mg PO BID 06/23/16 Cyanocobalamin [Vitamin B12 -] 1,000 mcg PO DAILY 06/23/16 Donepezil HCl [Aricept] 10 mg PO DAILY 06/23/16 Levetiracetam [Keppra -] 1,000 mg PO BID 06/23/16 Metformin HCl [Glucophage] 500 mg PO TID 06/23/16 Metoprolol Tartrate 50 mg PO BID 06/23/16 Phenytoin Na Extended [Dilantin -] 200 mg PO BID 06/23/16 Ramipril 10 mg PO DAILY 06/23/16 Sertraline HCl [Zoloft] 50 mg PO DAILY 06/23/16 Simvastatin 40 mg PO DAILY 06/23/16 Amiodarone HCl [Cordarone -] 200 mg PO BID 03/06/17 Dapagliflozin Propanediol [Farxiga] 10 mg PO DAILY 03/06/17 Furosemide [Lasix] 20 mg PO DAILY 03/06/17 Spironolactone 25 mg PO DAILY 03/06/17
[2017-03-09 08:40] LABS: TROPONIN I 1.5 ng/ml (0.00-0.05)
[2017-03-09] MEDS: levETIRAcetam 500 MG TABLET (FP) PO SCH ×2 (09:23→21:31)
[2017-03-09] MEDS: CYANOCOBALAMIN 1,000 MCG TABLET (FP) PO SCH (09:24)
[2017-03-09] MEDS: AZITHROMYCIN IVPB 500 MG in DEXTROSE 5%-WATER - 250 ML IVPB SCH (09:24)
[2017-03-09] MEDS: RAMIPRIL 2.5 MG CAPSULE (FP) PO SCH (09:24)
[2017-03-09] MEDS: FUROSEMIDE 20 MG TABLET (FP) PO SCH (09:24)
[2017-03-09] MEDS: ATORVASTATIN CA 20 MG TABLET (FP) PO SCH (09:24)
[2017-03-09] MEDS: CEFTRIAXONE 1 G/50 ML PREMIX 50 ML IVPB SCH (09:24)
[2017-03-09] MEDS: METOPROLOL TARTRATE 50 MG TABLET (FP) PO SCH ×2 (09:24→21:31)
[2017-03-09] MEDS: SPIRONOLACTONE 25 MG TABLET (FP) PO SCH (09:24)
[2017-03-09] MEDS: POLYETHYLENE GLYCOL 3350 119 GM BTL PO SCH ×2 (09:24→21:32)
[2017-03-09] MEDS: PHENYTOIN NA EXTENDED 100 MG CAPSULE (FP) PO SCH ×2 (09:25→21:31)
[2017-03-09] MEDS: AMIODARONE HCL 200 MG TABLET (FP) PO SCH (09:26)
[2017-03-09] MEDS: APIXABAN 5 MG TABLET PO SCH ×2 (09:26→21:31)
--- NOTE | 2017-03-09 10:49 | PN ---
Progress Note (short form) - Note Progress Note: PULMONARY SITTING UP/AWAKE/ALERT VSS/AFEBRILE ANICTERIC DIMINISHED BREATH SOUNDS S1S2 BS+ LESS EDEMA CT CHEST/EKG/LABS/MEDS/NOTES/MICRO REVIEWED Acute Hypoxic Respiratory Failure resolved Pneumonia RLL clinically improved Acute COPD Exacerbation CAD s/p CABG h/o Atrial Fibrillation - steroids discontinued - inhaled bronchodilators standing and PRN - O2 to keep SpO2 >90% - rate control - continue anticoagulation - agree with SNF rehab Thank you Alejandra BERGER MD
--- NOTE | 2017-03-09 11:11 | PN ---
Progress Note, Physician History of Present Illness: Cough, congestion, shortness of breath, lethargy, fever resolved, denies chest pain, palpitations, near or true syncope. - Current Medication List Current Medications: Active Medications Albuterol/Ipratropium (Duoneb -) 1 amp NEB QIDR [facility] Last Admin: 03/09/17 06:10 Dose: 1 amp Amiodarone HCl (Cordarone -) 100 mg PO DAILY [facility] Last Admin: 03/09/17 09:26 Dose: 100 mg Apixaban (Eliquis -) 5 mg PO BID [facility] Last Admin: 03/09/17 09:26 Dose: 5 mg Atorvastatin Calcium (Lipitor -) 20 mg PO DAILY [facility] Last Admin: 03/09/17 09:24 Dose: 20 mg Cyanocobalamin (Vitamin B12 -) 1,000 mcg PO DAILY [facility] Last Admin: 03/09/17 09:24 Dose: 1,000 mcg Furosemide (Lasix -) 20 mg PO DAILY [facility] Last Admin: 03/09/17 09:24 Dose: 20 mg Azithromycin 500 mg/ Dextrose 250 mls @ 250 mls/hr IVPB DAILY [facility] Last Admin: 03/09/17 09:24 Dose: 250 mls/hr CEFTRIAXONE 1 G/50 ML PREMIX (Ceftriaxone 1 Gm-D5w Bag) 50 mls @ 100 mls/hr IVPB DAILY [facility] Last Admin: 03/09/17 09:24 Dose: 100 mls/hr Insulin Aspart (Novolog Vial Sliding Scale -) 1 vial SQ ACHS [facility] PRN Reason: Protocol Last Admin: 03/09/17 06:00 Dose: Not Given Insulin Detemir (Levemir Vial) 10 units SQ DAILY@0700 [facility] Last Admin: 03/09/17 06:27 Dose: 10 units Levetiracetam (Keppra -) 1,000 mg PO BID [facility] Last Admin: 03/09/17 09:23 Dose: 1,000 mg Metoprolol Tartrate (Lopressor -) 50 mg PO BID [facility] Last Admin: 03/09/17 09:24 Dose: 50 mg Phenytoin Sodium (Dilantin -) 200 mg PO BID [facility] Last Admin: 03/09/17 09:25 Dose: 200 mg Polyethylene Glycol (Miralax (For Daily Use) -) 17 gm PO BID [facility] Last Admin: 12/27/17 09:24 Dose: 17 gm Ramipril (Altace -) 2.5 mg PO DAILY [facility] Last Admin: 03/09/17 09:24 Dose: 2.5 mg Sodium Chloride (Normal Saline -) 960 ml IV Q20M PRN PRN Reason: MAP<65mm Hg OR SBP <90 Spironolactone (Aldactone -) 25 mg PO DAILY [facility] Last Admin: 03/09/17 09:24 Dose: 25 mg - Objective Vital Signs: Vital Signs Temperature 98.1 F 03/09/17 05:45 Pulse Rate 127 H 03/09/17 05:45 Respiratory Rate 20 03/09/17 05:45 Blood Pressure 113/59 03/09/17 05:45 O2 Sat by Pulse Oximetry (%) 95 03/08/17 21:00 Constitutional: Yes: No Distress, Calm Neck: Yes: Supple Cardiovascular: Yes: Regular Rate and Rhythm Respiratory: Yes: Regular, Diminished, On Nasal O2 Gastrointestinal: Yes: Normal Bowel Sounds, Soft Edema: No Labs: CBC, BMP 03/08/17 06:30 03/08/17 06:30 INR, PTT INR 1.39 (0.82-1.09) H D 03/06/17 11:05 Problem List - Problems (1) Diastolic dysfunction without heart failure Code(s): I51.9 - HEART DISEASE, UNSPECIFIED (2) Acute respiratory failure with hypoxia Code(s): J96.01 - ACUTE RESPIRATORY FAILURE WITH HYPOXIA (3) Atrial fibrillation Code(s): I48.91 - UNSPECIFIED ATRIAL FIBRILLATION Qualifiers: Atrial fibrillation type: paroxysmal Qualified Code(s): I48.0 - Paroxysmal atrial fibrillation (4) CAD (coronary artery disease) Code(s): I25.10 - ATHSCL HEART DISEASE OF [place] CORONARY ARTERY W/O ANG PCTRS Qualifiers: Coronary Disease-Associated Artery/Lesion type: bypass graft [place] vs. transplanted heart: [place] heart Associated angina: without angina Qualified Code(s): I25.810 - Atherosclerosis of coronary artery bypass graft(s) without angina pectoris (5) COPD (chronic obstructive pulmonary disease) with acute bronchitis Code(s): J44.0 - CHRONIC OBSTRUCTIVE PULMON DISEASE W ACUTE LOWER RESP INFCT; J20.9 - ACUTE BRONCHITIS, UNSPECIFIED (6) Elevated troponin Code(s): R74.8 - ABNORMAL LEVELS OF OTHER SERUM ENZYMES (7) Pneumonia Code(s): J18.9 - PNEUMONIA, UNSPECIFIED ORGANISM Qualifiers: Pneumonia type: due to unspecified organism Laterality: right Lung location: lower lobe of lung Qualified Code(s): J18.1 - Lobar pneumonia, unspecified organism (8) CVA (cerebral infarction) Code(s): I63.9 - CEREBRAL INFARCTION, UNSPECIFIED (9) Diabetes Code(s): E11.9 - TYPE 2 DIABETES MELLITUS WITHOUT COMPLICATIONS Qualifiers: Diabetes mellitus type: type 2 Diabetes mellitus complication status: with unspecified complications (10) S/P CABG (coronary artery bypass graft) Code(s): Z95.1 - PRESENCE OF AORTOCORONARY BYPASS GRAFT (11) Demand ischemia Code(s): I24.8 - OTHER FORMS OF ACUTE ISCHEMIC HEART DISEASE Assessment/Plan 1. Acute hypoxic respiratory failure referable to pneumonia resolving 2. AE COPD 3. Paroxysmal atrial tachycardia, currently in sinus rhythm 4. CAD post CABGx3 with demand ischemia 5. Post-CABG PAF [id number] score of 5 6. HTN 7. NIDDM 8. Hyperlipidemia 9. Seizure disorder 10. Obstructive sleep apnea history 11. Diastolic dysfunction PLAN: 1. ABx course per C&S, steroids d/leisa, BD standing and PRN, O2 to maintain saO2> 90% 2. Continue Eliquis 5 bid, Lopressor 50 bid, Amio 100 qd, Altace 2.5 qd, Lipitor 20 qd, Aldactone 25 qd and Lasix 20 qd 3. F/u trops to document peak 4. D/c planning once trops stabilize
[2017-03-09 20:20] LABS: TROPONIN I 0.83 ng/ml (0.00-0.05)
[2017-03-09] MEDS ORDERED: ZOLPIDEM TARTRATE 5 MG TABLET PO PRN (22:00)
[2017-03-10 05:33] VITALS: BP 118/61; PULSE 81; TEMP 98.3
[2017-03-10] MEDS: INSULIN SLIDING SCALE (NOVOLOG) 1 VIAL SQ SCH ×2 (06:05→13:01)
[2017-03-10] MEDS: INSULIN DETEMIR 100 UNITS/ML MDV SQ SCH (06:15)
[2017-03-10] MEDS: ALBUTEROL SO4 2.5/IPRATROPIUM 0.5 INH SOL 3 ML VIAL.NEB. NEB SCH ×3 (06:20→11:08)
[2017-03-10] MEDS ORDERED: INSULIN (NOVOLOG) ASPART 100 UNITS/ML 10ML VIAL ONE (06:59)
--- NOTE | 2017-03-10 08:53 | PN ---
Progress Note, Physician Chief Complaint: Patient is in bed, mildly confused. 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 CABG x3, Hx of PAF after CABG, ASHD, HYperlipidemia Hx of ST vs atrial tachycardia. A.Fib DM type 2 previously well controlled HTN COPD. [facility] [place] Sx-BCC on the nose. Cholecystectomy. Varicose veins. Dysphagia.MBS-slow transit. Obstructive sleep apnea-refused CPAP. Gait disorder - Current Medication List Current Medications: Active Medications Albuterol/Ipratropium (Duoneb -) 1 amp NEB QIDR [facility] Last Admin: 03/10/17 06:20 Dose: 1 amp Amiodarone HCl (Cordarone -) 100 mg PO DAILY [facility] Last Admin: 03/09/17 09:26 Dose: 100 mg Apixaban (Eliquis -) 5 mg PO BID [facility] Last Admin: 03/09/17 21:31 Dose: 5 mg Atorvastatin Calcium (Lipitor -) 20 mg PO DAILY [facility] Last Admin: 03/09/17 09:24 Dose: 20 mg Cyanocobalamin (Vitamin B12 -) 1,000 mcg PO DAILY [facility] Last Admin: 03/09/17 09:24 Dose: 1,000 mcg Furosemide (Lasix -) 20 mg PO DAILY [facility] Last Admin: 03/09/17 09:24 Dose: 20 mg Azithromycin 500 mg/ Dextrose 250 mls @ 250 mls/hr IVPB DAILY [facility] Last Admin: 03/09/17 09:24 Dose: 250 mls/hr CEFTRIAXONE 1 G/50 ML PREMIX (Ceftriaxone 1 Gm-D5w Bag) 50 mls @ 100 mls/hr IVPB DAILY [facility] Last Admin: 03/09/17 09:24 Dose: 100 mls/hr Insulin Aspart (Novolog Vial Sliding Scale -) 1 vial SQ ACHS [facility] PRN Reason: Protocol Last Admin: 03/10/17 06:05 Dose: Not Given Insulin Detemir (Levemir Vial) 10 units SQ DAILY@0700 [facility] Last Admin: 03/10/17 06:15 Dose: 10 units Levetiracetam (Keppra -) 1,000 mg PO BID [facility] Last Admin: 03/09/17 21:31 Dose: 1,000 mg Metoprolol Tartrate (Lopressor -) 50 mg PO BID [facility] Last Admin: 03/09/17 21:31 Dose: 50 mg Phenytoin Sodium (Dilantin -) 200 mg PO BID [facility] Last Admin: 03/09/17 21:31 Dose: 200 mg Polyethylene Glycol (Miralax (For Daily Use) -) 17 gm PO BID [facility] Last Admin: 03/09/17 21:32 Dose: 17 gm Ramipril (Altace -) 2.5 mg PO DAILY [facility] Last Admin: 03/09/17 09:24 Dose: 2.5 mg Sodium Chloride (Normal Saline -) 960 ml IV Q20M PRN PRN Reason: MAP<65mm Hg OR SBP <90 Spironolactone (Aldactone -) 25 mg PO DAILY [facility] Last Admin: 03/09/17 09:24 Dose: 25 mg Zolpidem Tartrate (Ambien -) 5 mg PO HS PRN Last Admin: 03/09/17 21:45 Dose: 5 mg - Objective Vital Signs: Vital Signs Temperature 98.3 F 03/10/17 05:31 Pulse Rate 81 03/10/17 05:31 Respiratory Rate 20 03/10/17 05:31 Blood Pressure 118/61 03/10/17 05:31 O2 Sat by Pulse Oximetry (%) 96 03/09/17 21:22 Constitutional: Yes: No Distress, Anxious Eyes: Yes: Conjunctiva Clear, EOM Intact HENT: No: Drooling, Nasal Congestion, [place] Neck: Yes: Supple, Trachea Midline Cardiovascular: No: Tachycardia Respiratory: Yes: On Nasal O2, Rhonchi Gastrointestinal: Yes: Normal Bowel Sounds, Soft. No: Ascites, Tenderness, Rebound, Vomiting ...Rectal Exam: Yes: Deferred Genitourinary: No: Anuria, Bladder Distention Breast(s): Yes: WNL Extremities: No: Amputation, Calf Tenderness, Cold, Cyanosis Edema: No Peripheral Pulses WNL: No Integumentary: Yes: WNL Neurological: Yes: Alert, Oriented (x1), Unsteady Gait. No: Aphasia, Ataxia ...Motor Strength: WNL Psychiatric: Yes: Alert, Oriented (x1) Labs: CBC, BMP 03/08/17 06:30 03/08/17 06:30 INR, PTT INR 1.39 (0.82-1.09) H D 03/06/17 11:05 Problem List - Problems (1) Pneumonia Assessment/Plan: Start IV Abx for CAP Noted bronchiectasis on CT with infiltrates. Code(s): J18.9 - PNEUMONIA, UNSPECIFIED ORGANISM Qualifiers: Pneumonia type: due to unspecified organism Laterality: right Lung location: lower lobe of lung Qualified Code(s): J18.1 - Lobar pneumonia, unspecified organism (2) Sepsis Assessment/Plan: Follow Bld Cx Follow CBC, fevers. Continue Abx. Code(s): A41.9 - SEPSIS, UNSPECIFIED ORGANISM Qualifiers: Sepsis type: sepsis due to unspecified organism Qualified Code(s): A41.9 - Sepsis, unspecified organism (3) Diabetes Assessment/Plan: Will hold Metformin amd SGLT meds Basal Insulin and short acting. Follow BGM. Code(s): E11.9 - TYPE 2 DIABETES MELLITUS WITHOUT COMPLICATIONS Qualifiers: Diabetes mellitus type: type 2 Diabetes mellitus complication status: with unspecified complications (4) COPD (chronic obstructive pulmonary disease) with acute bronchitis Assessment/Plan: Solumedrol-will d/c. Duo-nebs QID RTC. Supplemental O2. Pulm consult Code(s): J44.0 - CHRONIC OBSTRUCTIVE PULMON DISEASE W ACUTE LOWER RESP INFCT; J20.9 - ACUTE BRONCHITIS, UNSPECIFIED (5) Afib Assessment/Plan: Contro V-rate. On Amio and BAB now Previously AT . Code(s): I48.91 - UNSPECIFIED ATRIAL FIBRILLATION Qualifiers: Atrial fibrillation type: chronic Qualified Code(s): I48.2 - Chronic atrial fibrillation (6) CHF (congestive heart failure) Assessment/Plan: Continue CRISTÓBAL, BAB, IV Lasix, Spironolactone. Follow VS, BP. Code(s): I50.9 - HEART FAILURE, UNSPECIFIED Qualifiers: Congestive heart failure type: diastolic Congestive heart failure chronicity: acute on chronic Qualified Code(s): I50.33 - Acute on chronic diastolic (congestive) heart failure (7) Do not resuscitate discussion Assessment/Plan: Re-discussed today with Delores [id number]. She confirmed DNNR/DNI. Code(s): Z71.89 - OTHER SPECIFIED COUNSELING (8) Acute NC Assessment/Plan: Probably demand ischemia/ NC Troponin I is declining. Code(s): I21.9 - ACUTE MYOCARDIAL INFARCTION, UNSPECIFIED Qualifiers: Myocardial infarction ST status: non-ST elevation myocardial infarction Qualified Code(s): I21.4 - Non-ST elevation (NSTEMI) myocardial infarction
[2017-03-10] MEDS ORDERED: PT OWN MED DRAWER 7, Y5N ONE ×2 (09:03→12:54)
[2017-03-10] MEDS ORDERED: FUROSEMIDE 40 MG/4 ML INJECTABLE VIAL IVPUSH ONE (10:00)
[2017-03-10] MEDS: SPIRONOLACTONE 25 MG TABLET (FP) PO SCH (10:07)
[2017-03-10] MEDS: RAMIPRIL 2.5 MG CAPSULE (FP) PO SCH (10:08)
[2017-03-10] MEDS: CEFTRIAXONE 1 G/50 ML PREMIX 50 ML IVPB SCH (10:08)
[2017-03-10] MEDS: PHENYTOIN NA EXTENDED 100 MG CAPSULE (FP) PO SCH (10:12)
[2017-03-10] MEDS: ATORVASTATIN CA 20 MG TABLET (FP) PO SCH (10:13)
[2017-03-10] MEDS: APIXABAN 5 MG TABLET PO SCH (10:13)
[2017-03-10] MEDS: levETIRAcetam 500 MG TABLET (FP) PO SCH (10:13)
[2017-03-10] MEDS: METOPROLOL TARTRATE 50 MG TABLET (FP) PO SCH (10:13)
[2017-03-10] MEDS: AZITHROMYCIN IVPB 500 MG in DEXTROSE 5%-WATER - 250 ML IVPB SCH (10:14)
[2017-03-10] MEDS: POLYETHYLENE GLYCOL 3350 119 GM BTL PO SCH (10:14)
[2017-03-10] MEDS: CYANOCOBALAMIN 1,000 MCG TABLET (FP) PO SCH (10:14)
[2017-03-10] MEDS: FUROSEMIDE 20 MG TABLET (FP) PO SCH (10:51)
--- NOTE | 2017-03-10 11:18 | PN ---
Progress Note, Physician History of Present Illness: Cough, congestion, shortness of breath, lethargy, fever resolved, denies chest pain, palpitations, near or true syncope. - Current Medication List Current Medications: Active Medications Albuterol/Ipratropium (Duoneb -) 1 amp NEB QIDR [facility] Last Admin: 03/10/17 11:08 Dose: 1 amp Amiodarone HCl (Cordarone -) 100 mg PO DAILY [facility] Last Admin: 03/09/17 09:26 Dose: 100 mg Apixaban (Eliquis -) 5 mg PO BID [facility] Last Admin: 03/10/17 10:13 Dose: 5 mg Atorvastatin Calcium (Lipitor -) 20 mg PO DAILY [facility] Last Admin: 03/10/17 10:13 Dose: 20 mg Cyanocobalamin (Vitamin B12 -) 1,000 mcg PO DAILY [facility] Last Admin: 03/10/17 10:14 Dose: 1,000 mcg Furosemide (Lasix -) 20 mg PO DAILY [facility] Last Admin: 03/10/17 10:51 Dose: Not Given Azithromycin 500 mg/ Dextrose 250 mls @ 250 mls/hr IVPB DAILY [facility] Last Admin: 03/10/17 10:14 Dose: 250 mls/hr CEFTRIAXONE 1 G/50 ML PREMIX (Ceftriaxone 1 Gm-D5w Bag) 50 mls @ 100 mls/hr IVPB DAILY [facility] Last Admin: 03/10/17 10:08 Dose: 100 mls/hr Insulin Aspart (Novolog Vial Sliding Scale -) 1 vial SQ ACHS [facility] PRN Reason: Protocol Last Admin: 03/10/17 06:05 Dose: Not Given Insulin Detemir (Levemir Vial) 10 units SQ DAILY@0700 [facility] Last Admin: 03/10/17 06:15 Dose: 10 units Levetiracetam (Keppra -) 1,000 mg PO BID [facility] Last Admin: 03/10/17 10:13 Dose: 1,000 mg Metoprolol Tartrate (Lopressor -) 50 mg PO BID [facility] Last Admin: 03/10/17 10:13 Dose: 50 mg Phenytoin Sodium (Dilantin -) 200 mg PO BID [facility] Last Admin: 03/10/17 10:12 Dose: 200 mg Polyethylene Glycol (Miralax (For Daily Use) -) 17 gm PO BID [facility] Last Admin: 03/10/17 10:14 Dose: 17 gm Ramipril (Altace -) 2.5 mg PO DAILY [facility] Last Admin: 03/10/17 10:08 Dose: 2.5 mg Sodium Chloride (Normal Saline -) 960 ml IV Q20M PRN PRN Reason: MAP<65mm Hg OR SBP <90 Spironolactone (Aldactone -) 25 mg PO DAILY [facility] Last Admin: 03/10/17 10:07 Dose: 25 mg Zolpidem Tartrate (Ambien -) 5 mg PO HS PRN Last Admin: 03/09/17 21:45 Dose: 5 mg - Objective Vital Signs: Vital Signs Temperature 98.3 F 03/10/17 05:31 Pulse Rate 81 03/10/17 11:09 Respiratory Rate 20 03/10/17 05:31 Blood Pressure 118/61 03/10/17 05:31 O2 Sat by Pulse Oximetry (%) 95 03/10/17 11:09 Constitutional: Yes: No Distress, Calm Neck: Yes: Supple Cardiovascular: Yes: Regular Rate and Rhythm Respiratory: Yes: Regular, Diminished, On Nasal O2 Gastrointestinal: Yes: Normal Bowel Sounds, Soft Edema: No Labs: CBC, BMP 03/08/17 06:30 03/08/17 06:30 INR, PTT INR 1.39 (0.82-1.09) H D 03/06/17 11:05 Problem List - Problems (1) Diastolic dysfunction without heart failure Code(s): I51.9 - HEART DISEASE, UNSPECIFIED (2) Acute respiratory failure with hypoxia Code(s): J96.01 - ACUTE RESPIRATORY FAILURE WITH HYPOXIA (3) Atrial fibrillation Code(s): I48.91 - UNSPECIFIED ATRIAL FIBRILLATION Qualifiers: Atrial fibrillation type: paroxysmal Qualified Code(s): I48.0 - Paroxysmal atrial fibrillation (4) CAD (coronary artery disease) Code(s): I25.10 - ATHSCL HEART DISEASE OF [place] CORONARY ARTERY W/O ANG PCTRS Qualifiers: Coronary Disease-Associated Artery/Lesion type: bypass graft [place] vs. transplanted heart: [place] heart Associated angina: without angina Qualified Code(s): I25.810 - Atherosclerosis of coronary artery bypass graft(s) without angina pectoris (5) COPD (chronic obstructive pulmonary disease) with acute bronchitis Code(s): J44.0 - CHRONIC OBSTRUCTIVE PULMON DISEASE W ACUTE LOWER RESP INFCT; J20.9 - ACUTE BRONCHITIS, UNSPECIFIED (6) Elevated troponin Code(s): R74.8 - ABNORMAL LEVELS OF OTHER SERUM ENZYMES (7) Pneumonia Code(s): J18.9 - PNEUMONIA, UNSPECIFIED ORGANISM Qualifiers: Pneumonia type: due to unspecified organism Laterality: right Lung location: lower lobe of lung Qualified Code(s): J18.1 - Lobar pneumonia, unspecified organism (8) CVA (cerebral infarction) Code(s): I63.9 - CEREBRAL INFARCTION, UNSPECIFIED (9) Diabetes Code(s): E11.9 - TYPE 2 DIABETES MELLITUS WITHOUT COMPLICATIONS Qualifiers: Diabetes mellitus type: type 2 Diabetes mellitus complication status: with unspecified complications (10) S/P CABG (coronary artery bypass graft) Code(s): Z95.1 - PRESENCE OF AORTOCORONARY BYPASS GRAFT (11) Demand ischemia Code(s): I24.8 - OTHER FORMS OF ACUTE ISCHEMIC HEART DISEASE Assessment/Plan 1. Acute hypoxic respiratory failure referable to pneumonia resolving 2. AE COPD 3. Paroxysmal atrial tachycardia, currently in sinus rhythm 4. CAD post CABGx3 with demand ischemia 5. Post-CABG PAF [id number] score of 5 6. HTN 7. NIDDM 8. Hyperlipidemia 9. Seizure disorder 10. Obstructive sleep apnea history 11. Diastolic dysfunction PLAN: 1. Complete ABx course per C&S, steroids d/leisa, BD standing and PRN, O2 to maintain saO2>90% 2. Continue Eliquis 5 bid, Lopressor 50 bid, Amio 100 qd, Altace 2.5 qd, Lipitor 20 qd, Aldactone 25 qd and Lasix 20 qd 3. Trops have peaked 4. D/c planning now that trops have peaked
[2017-03-10] MEDS: AMIODARONE HCL 200 MG TABLET (FP) PO SCH (13:01)
== END 2017-03-10 13:36 | DRG 871 ==
LOC: JER 10:52 → JERBED 13:56 → J7W 17:27
PROVIDERS: ADMIT Internal Medicine; ATTEND Internal Medicine
DX: A41.9 Sepsis, unspecified organism (principal); J96.01 Acute respiratory failure with hypoxia; J18.9 Pneumonia, unspecified organism; I50.33 Acute on chronic diastolic (congestive) heart failure; R64 Cachexia; J44.0 Chronic obstructive pulmonary disease with (acute) lower respiratory infection; I24.8 Other forms of acute ischemic heart disease; I47.1 Supraventricular tachycardia; R56.1 Post traumatic seizures; J44.1 Chronic obstructive pulmonary disease with (acute) exacerbation; E87.2 Acidosis; Z91.81 History of falling; S40.212A Abrasion of left shoulder, initial encounter; W01.0XXA Fall on same level from slipping, tripping and stumbling without subsequent striking against object, initial encounter; Y93.89 Activity, other specified; Y92.022 Bathroom in mobile home as the place of occurrence of the external cause; Y99.8 Other external cause status; E11.9 Type 2 diabetes mellitus without complications; I10 Essential (primary) hypertension; E78.00 Pure hypercholesterolemia, unspecified; Z95.1 Presence of aortocoronary bypass graft; I48.91 Unspecified atrial fibrillation; I25.10 Atherosclerotic heart disease of native coronary artery without angina pectoris; E78.5 Hyperlipidemia, unspecified; G47.33 Obstructive sleep apnea (adult) (pediatric); R13.10 Dysphagia, unspecified; R26.9 Unspecified abnormalities of gait and mobility; Z79.84 Long term (current) use of oral hypoglycemic drugs; Z68.28 Body mass index [BMI] 28.0-28.9, adult; J20.9 Acute bronchitis, unspecified; I48.2 Chronic atrial fibrillation; Z87.891 Personal history of nicotine dependence; I48.0 Paroxysmal atrial fibrillation
CPT/HCPCS: 36415; 36600; 70450-TC; 71010-TC; 71250-TC; 72170-TC; 73030-TC-LT; 80053; 80061; 81003; 81015; 82550; 82553; 82803; 83036; 83605; 83721; 83735; 84100; 84484; 85025; 85610; 85730; 86850; 86900; 86901; 87040; 87086; 87804; 87899; 90670; 90715; 93005; 93010; 94640; 97116-GP; 99285-25